=== PATIENT | female | born 1940 | race Caucasian/White ===

== ENCOUNTER 2019-12-21 10:46 | Inpatient (IN) | payer MEDICARE ==
[~2019-12-21] VITALS: Ht 162.6 cm; Wt 50.8 kg
--- NOTE | 2019-12-21 11:27 | PHYS DOC ---
Past Medical History Past Medical History: Dementia, High Cholesterol, Hypertension, Other (Parkinson) Adult General Chief Complaint Chief Complaint: MECHANICAL FALL HPI HPI Patient is a 79 year old female with history of hypertension, dyslipidemia, parkinsonism, dementia resident of assisting living home who presents via EMS with complaining of a fall and pain in left wrist and right hand. Patient had a second fall for the last 2 weeks and had a fall from a standing position at her assisting living home without loss of consciousness. Patient complaining of pain in left side of forehead, left wrist and right thumb and rated her pain. 4/10 and doesn't want to have pain medication. Patient is up-to-date with tetanus summarization. Review of Systems Review of Systems Constitutional: Denies fever or chills [] Eyes: Denies change in visual acuity, redness, or eye pain [] HENT: Denies nasal congestion or sore throat [] Respiratory: Denies cough or shortness of breath [] Cardiovascular: No additional information not addressed in HPI [] GI: Denies abdominal pain, nausea, vomiting, bloody stools or diarrhea [] : Denies dysuria or hematuria [] Musculoskeletal: Denies back pain, reports joint pain [] Integument: Denies rash or skin lesions [] Neurologic: Denies headache, focal weakness or sensory changes [] Endocrine: Denies polyuria or polydipsia [] All other systems were reviewed and found to be within normal limits, except as documented in this note. Current Medications Current Medications Current Medications Medications (Trade) Dose Ordered Sig/Tanika Start Time Stop Time Status Last Admin Dose Admin Fentanyl Citrate (Fentanyl 2ml Vial) 50 mcg PRN Q2HR PRN 12/21/19 13:00 12/21/19 21:00 DC Ondansetron HCl (Zofran) 4 mg 1X ONCE 12/21/19 12:15 12/21/19 12:16 DC 12/21/19 12:38 4 MG Allergies Allergies Allergies Coded Allergies Type Severity Reaction Last Updated Verified shellfish derived Allergy Intermediate Hives 12/21/19 Yes Physical Exam Physical Exam Constitutional: Well developed, well nourished, mild distress, non-toxic appearance. [] HENT: Normocephalic, left forehead and eyebrow contusion and abrasion without active bleeding Eyes: PERRLA, EOMI, conjunctiva normal, no discharge. [] Neck: Immobilized prior to arrival to ER Cardiovascular:Heart rate regular rhythm, no murmur [] Lungs & Thorax: Bilateral breath sounds clear to auscultation [] Abdomen: Bowel sounds normal, soft, no tenderness, no masses, no pulsatile masses. [] Skin: Warm, dry, no erythema, no rash. [] Back: No tenderness, no CVA tenderness. [] Extremities: Left wrist with deformity and tenderness, no neurovascular deficit, painful range of motion, right hand fifth contusion of fifth metacarpal area without deformity. Neurologic: Alert and oriented X 3, no focal deficits noted. [] Psychologic: Affect normal, mood normal. [] Current Patient Data Vital Signs Vital Signs Date Time Temp Pulse Resp B/P (MAP) Pulse Ox O2 Delivery O2 Flow Rate FiO2 12/21/19 12:45 72 18 99 12/21/19 10:50 98.1 142/77 (98) Room Air 98.1 Lab Values Laboratory Tests Test 12/21/19 12:30 White Blood Count 3.6 x10^3/uL (4.0-11.0) L Red Blood Count 4.08 x10^6/uL (3.50-5.40) Hemoglobin 12.4 g/dL (12.0-15.5) Hematocrit 37.7 % (36.0-47.0) Mean Corpuscular Volume 92 fL (79-100) Mean Corpuscular Hemoglobin 30 pg (25-35) Mean Corpuscular Hemoglobin Concent 33 g/dL (31-37) Red Cell Distribution Width 13.2 % (11.5-14.5) Platelet Count 196 x10^3/uL (140-400) Neutrophils (%) (Auto) 70 % (31-73) Lymphocytes (%) (Auto) 18 % (24-48) L Monocytes (%) (Auto) 10 % (0-9) H Eosinophils (%) (Auto) 2 % (0-3) Basophils (%) (Auto) 0 % (0-3) Neutrophils # (Auto) 2.5 x10^3/uL (1.8-7.7) Lymphocytes # (Auto) 0.7 x10^3/uL (1.0-4.8) L Monocytes # (Auto) 0.3 x10^3/uL (0.0-1.1) Eosinophils # (Auto) 0.1 x10^3/uL (0.0-0.7) Basophils # (Auto) 0.0 x10^3/uL (0.0-0.2) Prothrombin Time 13.0 SEC (11.7-14.0) Prothrombin Time INR 1.0 (0.8-1.1) Sodium Level 143 mmol/L (136-145) Potassium Level 4.4 mmol/L (3.5-5.1) Chloride Level 107 mmol/L (98-107) Carbon Dioxide Level 28 mmol/L (21-32) Anion Gap 8 (6-14) Blood Urea Nitrogen 16 mg/dL (7-20) Creatinine 0.7 mg/dL (0.6-1.0) Estimated GFR (Cockcroft-Gault) 80.3 BUN/Creatinine Ratio 23 (6-20) H Glucose Level 93 mg/dL (70-99) Calcium Level 9.0 mg/dL (8.5-10.1) Total Bilirubin 0.4 mg/dL (0.2-1.0) Aspartate Amino Transferase (AST) 18 U/L (15-37) Alanine Aminotransferase (ALT) < 6 U/L (14-59) L Alkaline Phosphatase 61 U/L (46-116) Total Protein 6.7 g/dL (6.4-8.2) Albumin 3.5 g/dL (3.4-5.0) Albumin/Globulin Ratio 1.1 (1.0-1.7) Laboratory Tests 12/21/19 12:30 Laboratory Tests 12/21/19 12:30 EKG EKG [] Radiology/Procedures Radiology/Procedures [facility] [address] [place], [place] [id number] IMAGING REPORT Signed PATIENT: BRIANA CHANEYACCOUNT: [id number] : 1940 LOCATION: ER AGE: 79 SEX: F EXAM STATUS: REG ER ORD. PHYSICIAN: LINNETTE MARIE MD REASON: fall, chest pain PROCEDURE: CHEST AP ONLY CHEST AP ONLY 12/21/2019 10:51 AM INDICATION: Fall, chest pain COMPARISON: None available TECHNIQUE: Portable frontal view of the chest is provided. FINDINGS: The cardiomediastinal silhouette is enlarged. Mild perihilar interstitial changes are identified with more confluent interstitial opacity in the left upper lobe. No pleural effusions or pneumothorax. Supine technique limits evaluation for pneumothorax. IMPRESSION: Cardiomegaly with mild perihilar interstitial changes and emphysema and interstitial edema or interstitial pneumonitis. Electronically signed by: Jaime Miramontes MD (12/21/2019 11:47 AM) [facility] DICTATED and SIGNED BY: JAIME MIRAMONTES MD DATE: 12/21/19 114 [facility] [address] [place], [place] [id number] IMAGING REPORT Signed PATIENT: BRIANA CHANEYACCOUNT: [id number] : 1940 LOCATION: ER AGE: 79 SEX: F EXAM STATUS: REG ER ORD. PHYSICIAN: LINNETTE MARIE MD REASON: fall, rt hand pain PROCEDURE: HAND RIGHT 3V WRIST 3V LEFT, HAND RIGHT 3V 12/21/2019 10:51 AM INDICATION: Fall with left wrist pain and swelling COMPARISON: None available. TECHNIQUE: 3 views the left wrist and 3 views the right hand are provided. FINDINGS/ IMPRESSION: 1. Left wrist: There is a comminuted fracture transversely oriented involving the left radial metadiaphysis with intra-articular extension. There is a displaced ulnar styloid process fracture. Mild widening of the scapholunate interval measuring up to 3 mm. Scaphoid is intact. Carpal bones are otherwise intact. 2. Right hand: There is an ossific fragment along the radial margin of the distal interphalangeal joint of the third digit which appears chronic. Correlate with site of point tenderness. Tiny ossific fragment is identified along the ulnar margin of the fifth MCP which appears chronic. Correlate with the site of point tenderness. Joint spaces are maintained. Bone mineralization is within normal limits. No significant soft tissue swelling. Electronically signed by: Jaime Miramontes MD (12/21/2019 11:49 AM) [facility] DICTATED and SIGNED BY: JAIME MIRAMONTES MD DATE: 12/21/19 1149 [facility] [address] [place] [address] IMAGING REPORT Signed PATIENT: BRIANA CHANEYACCOUNT: [id number] : 1940 LOCATION: ER AGE: 79 SEX: F EXAM STATUS: REG ER ORD. PHYSICIAN: LINNETTE MARIE MD REASON: fall PROCEDURE: CT HEAD AND CERVICAL SPINE WO Examination: CT HEAD AND CERVICAL SPINE WO History: Fall, pain Comparison/Correlation: None Findings: Axial images of the head and cervical spine were obtained without contrast. Sagittal and coronal reformatted images of the cervical spine were obtained. Atrophy is present. No intracranial hemorrhage, midline shift or mass effect. Minimal opacification of external auditory canals noted. Atlantoaxial joint degenerative changes are mild. Facet joint degenerative hypertrophy bilaterally involving upper cervical spine. Moderate C5-6 space narrowing is present. Bony encroachment upon the right neural foramen is present on the right at C5-6 with significant neural foraminal narrowing. Mild C6-7 disc space narrowing. Bony density superior to the dens is noted probably representing accessory ossification center. Alignment is unremarkable. Vertebral body heights are normal. Soft tissues of the neck are unremarkable. Impression: No intracranial hemorrhage. No fracture or bony destruction. Degenerative changes of the cervical spine. PQRS Compliance Statement: One or more of the following individualized dose reduction techniques were utilized for this examination: 1. Automated exposure control 2. Adjustment of the mA and/or kV according to patient size 3. Use of iterative reconstruction technique Electronically signed by: Teja Petty MD (12/21/2019 11:55 AM) [facility] DICTATED and SIGNED BY: TEJA PETTY MD DATE: 12/21/19 1155 [facility] [address] [place] [address] IMAGING REPORT Signed PATIENT: BRIANA CHANEYACCOUNT: [id number] : 1940 LOCATION: ER AGE: 79 SEX: F EXAM STATUS: REG ER ORD. PHYSICIAN: LINNETTE MARIE MD REASON: fall, pelvic pain PROCEDURE: PELVIS PELVIS 12/21/2019 10:51 AM INDICATION: Fall, pelvic pain COMPARISON: None available. TECHNIQUE: Single AP view the pelvis is provided. FINDINGS/ IMPRESSION: Posterolateral fusion is identified at the L4-L5. No acute fracture or dislocation of the pelvis. Femoral heads are well aligned with the acetabulum. Superior and inferior pubic rami are intact. Sacroiliac joints are well aligned. Sacral stella appear intact. Electronically signed by: Jaime Miramontes MD (12/21/2019 11:50 AM) [facility] DICTATED and SIGNED BY: JAIME MIRAMONTES MD DATE: 12/21/19 1150 Course & Med Decision Making Course & Med Decision Making Pertinent Labs and Imaging studies reviewed. (See chart for details) Evaluation of patient in ER showed 79-year-old male patient with history of Parkinson and resident of assisted living home who move with her walker brought in by EMS because of a fall and injury to face and hands. Patient has distal radial and ulnar fracture of her left hand and splint was placed. Patient had facial contusion with unremarkable CT head and neck. Patient is not able to walk with her walker because of left hand splint and falls. Plan to admit patient for possible rehabilitation or assisted placement. Patient requiring admission for further evaluation and treatment. Discussed with Dr. Hernandez who is in agreement with admission. Discussed findings and plan with patient and family, who acknowledge understanding and agreement. Dragon Disclaimer Dragon Disclaimer This electronic medical record was generated, in whole or in part, using a voice recognition dictation system. Departure Departure Impression: Primary Impression: Frequent falls Additional Impressions: Closed fracture of distal end of left radius with ulna Facial contusion Contusion of right hand Disposition: ADMITTED INPATIENT (at 1255) Admitting Physician: ELENA (Dr. Hernandez accepted admission at 1253) Condition: IMPROVED Referrals: GEOVANI MCDANIEL Jr, MD (PCP) Problem Qualifiers Additional Impressions: Closed fracture of distal end of left radius with ulna Encounter type: initial encounter Qualified Codes: S52.502A - Unspecified fracture of the lower end of left radius, initial encounter for closed fracture; S52.602A - Unspecified fracture of lower end of left ulna, initial encounter for closed fracture Facial contusion Encounter type: subsequent encounter Qualified Codes: S00.83XD - Contusion of other part of head, subsequent encounter Contusion of right hand Encounter type: subsequent encounter Qualified Codes: S60.221D - Contusion of right hand, subsequent encounter LINNETTE MARIE MD Dec 21, 2019 11:27
[2019-12-21] MEDS ORDERED: fentaNYL PF VIAL 100 MCG/2 ML VIAL IVP ONE ×2 (11:45→12:00)
--- NOTE | 2019-12-21 11:50 | RAD ---
CHEST AP ONLY 12/21/2019 10:51 AM INDICATION: Fall, chest pain COMPARISON: None available TECHNIQUE: Portable frontal view of the chest is provided. FINDINGS: The cardiomediastinal silhouette is enlarged. Mild perihilar interstitial changes are identified with more confluent interstitial opacity in the left upper lobe. No pleural effusions or pneumothorax. Supine technique limits evaluation for pneumothorax. IMPRESSION: Cardiomegaly with mild perihilar interstitial changes and emphysema and interstitial edema or interstitial pneumonitis. Electronically signed by: Roxie Meier MD (12/21/2019 11:47 AM) [facility]
--- NOTE | 2019-12-21 11:52 | RAD ---
WRIST 3V LEFT, HAND RIGHT 3V 12/21/2019 10:51 AM INDICATION: Fall with left wrist pain and swelling COMPARISON: None available. TECHNIQUE: 3 views the left wrist and 3 views the right hand are provided. FINDINGS/ IMPRESSION: 1. Left wrist: There is a comminuted fracture transversely oriented involving the left radial metadiaphysis with intra-articular extension. There is a displaced ulnar styloid process fracture. Mild widening of the scapholunate interval measuring up to 3 mm. Scaphoid is intact. Carpal bones are otherwise intact. 2. Right hand: There is an ossific fragment along the radial margin of the distal interphalangeal joint of the third digit which appears chronic. Correlate with site of point tenderness. Tiny ossific fragment is identified along the ulnar margin of the fifth MCP which appears chronic. Correlate with the site of point tenderness. Joint spaces are maintained. Bone mineralization is within normal limits. No significant soft tissue swelling. Electronically signed by: Roxie Meier MD (12/21/2019 11:49 AM) [facility]
--- NOTE | 2019-12-21 11:53 | RAD ---
PELVIS 12/21/2019 10:51 AM INDICATION: Fall, pelvic pain COMPARISON: None available. TECHNIQUE: Single AP view the pelvis is provided. FINDINGS/ IMPRESSION: Posterolateral fusion is identified at the L4-L5. No acute fracture or dislocation of the pelvis. Femoral heads are well aligned with the acetabulum. Superior and inferior pubic rami are intact. Sacroiliac joints are well aligned. Sacral stella appear intact. Electronically signed by: Roxie Meier MD (12/21/2019 11:50 AM) [facility]
--- NOTE | 2019-12-21 11:58 | RAD ---
Examination: CT HEAD AND CERVICAL SPINE WO History: Fall, pain Comparison/Correlation: None Findings: Axial images of the head and cervical spine were obtained without contrast. Sagittal and coronal reformatted images of the cervical spine were obtained. Atrophy is present. No intracranial hemorrhage, midline shift or mass effect. Minimal opacification of external auditory canals noted. Atlantoaxial joint degenerative changes are mild. Facet joint degenerative hypertrophy bilaterally involving upper cervical spine. Moderate C5-6 space narrowing is present. Bony encroachment upon the right neural foramen is present on the right at C5-6 with significant neural foraminal narrowing. Mild C6-7 disc space narrowing. Bony density superior to the dens is noted probably representing accessory ossification center. Alignment is unremarkable. Vertebral body heights are normal. Soft tissues of the neck are unremarkable. Impression: No intracranial hemorrhage. No fracture or bony destruction. Degenerative changes of the cervical spine. PQRS Compliance Statement: One or more of the following individualized dose reduction techniques were utilized for this examination: 1. Automated exposure control 2. Adjustment of the mA and/or kV according to patient size 3. Use of iterative reconstruction technique Electronically signed by: Teja Sharp MD (12/21/2019 11:55 AM) [facility]
[2019-12-21] MEDS ORDERED: ONDANSETRON PF 4 MG/2 ML VIAL. IVP ONE (12:15)
[2019-12-21 12:41] LABS: BASO % 0 % (0-3); EOS # 0.1 x10^3/uL (0.0-0.7); EOS % 2 % (0-3); HEMATOCRIT 37.7 % (36.0-47.0); HEMOGLOBIN 12.4 g/dL (12.0-15.5); LYMPH # 0.7 x10^3/uL (1.0-4.8); LYMPH % 18 % (24-48); MEAN CORPUSCULAR HEMOGLOBIN 30 pg (25-35); MEAN CORPUSCULAR HGB CONC 33 g/dL (31-37); MEAN CORPUSCULAR VOLUME 92 fL (79-100); MONO # 0.3 x10^3/uL (0.0-1.1); MONO % 10 % (0-9); NEUT # 2.5 x10^3/uL (1.8-7.7); NEUT % 70 % (31-73); PLATELET COUNT 196 x10^3/uL (140-400); RED BLOOD COUNT 4.08 x10^6/uL (3.50-5.40); RED CELL DISTRIBUTION WIDTH 13.2 % (11.5-14.5); WHITE BLOOD COUNT 3.6 x10^3/uL (4.0-11.0)
--- NOTE | 2019-12-21 12:57 | PDOC1 ---
History and Physical Date of Admission Date of Admission DATE: 12/21/19 TIME: 12:53 Identification/Chief Complaint Chief Complaint falls, left wrist pain SEEN IN ER , presented via EMS with complaining of a fall and pain in left wrist and right hand. Patient had 2 FALLS , last 2 weeks and had a fall from a standing position at her assisting living home without loss of consciousness. complaining of pain in left side of forehead, left wrist and right thumb and rated her pain GAIT IS UNSTABLE, High fall risk, admitted Past Medical History Past Medical History Past Medical History Past Medical History: Dementia, High Cholesterol, Hypertension, Other (Parkinson) Cardiovascular: AFIB CENTRAL NERVOUS SYSTEM: Dementia Musculoskeletal: Osteoarthritis Family History Family History: Hypertension Social History Smoke: No ALCOHOL: none Drugs: None Current Medications Current Medications Current Medications Fentanyl Citrate (Fentanyl 2ml Vial) 50 mcg 1X ONCE IVP ; Start 12/21/19 at 11:45; Stop 12/21/19 at 11:58; Status DC Fentanyl Citrate (Fentanyl 2ml Vial) 50 mcg 1X ONCE IVP Last administered on 12/21/19at 12:38; Start 12/21/19 at 12:00; Stop 12/21/19 at 12:01; Status DC Ondansetron HCl (Zofran) 4 mg 1X ONCE IVP Last administered on 12/21/19at 12:38; Start 12/21/19 at 12:15; Stop 12/21/19 at 12:16; Status DC Allergies Allergies: Coded Allergies: shellfish derived (Verified Allergy, Intermediate, Hives, 12/21/19) ROS Review of System Review of Systems Review of Systems Constitutional: Denies fever or chills [] Eyes: Denies change in visual acuity, redness, or eye pain [] HENT: Denies nasal congestion or sore throat [] Respiratory: Denies cough or shortness of breath [] Cardiovascular: No additional information not addressed in HPI [] GI: Denies abdominal pain, nausea, vomiting, bloody stools or diarrhea [] : Denies dysuria or hematuria [] Musculoskeletal: Denies back pain, reports joint pain [] Integument: Denies rash or skin lesions [] Neurologic: Denies headache, focal weakness or sensory changes [] Endocrine: Denies polyuria or polydipsia [] 14 pt systems were reviewed and found to be within normal limits, except as documented in this note and limited by dementia. General: YES: Fatigue PSYCHOLOGICAL ROS: YES: Disorientation Hematological and Lymphatic: No: Bleeding Problems, Blood Clots, Blood Transfusions, Brusing, Night Sweats, Pallor, Swollen Lymph Nodes, Other Respiratory: No: Cough, Hemoptysis, Orthopnea, Pleuritic Pain, Shortness of breath, SOB with excertion, Sputum Changes, Stridor, Tachypnea, Wheezing, Other Cardiovascular: No Chest Pain, No Palpitations, No Orthopnea, No Paroxysmal Noc. Dyspnea, No Edema, No Lt Headedness, No Other Musculoskeletal: Yes Gait Disturbance, Yes Joint Stiffness Neurological: Yes Confusion, Yes Gait Disturbance Physical Exam Physical Exam Physical Exam Physical Exam Constitutional: Well developed, well nourished,no distress, non-toxic appearance. [] HENT: Normocephalic, left forehead and eyebrow contusion and abrasion without active bleeding Eyes: PERRLA, EOMI, conjunctiva normal, no discharge. [] Neck: Immobilized prior to arrival to ER Cardiovascular:Heart rate regular rhythm, no murmur [] Lungs & Thorax: Bilateral breath sounds clear to auscultation [] Abdomen: Bowel sounds normal, soft, no tenderness, no masses, no pulsatile masses. [] Skin: Warm, dry, no erythema, no rash. [] Back: No tenderness, no CVA tenderness. [] Extremities: Left wrist with deformity and tenderness, no neurovascular deficit, painful range of motion, right hand fifth digit contusion of fifth metacarpal area without deformity. Neurologic: Alert and oriented X 3, no focal deficits noted. [] Psychologic: Affect normal, mood normal. [] General: Alert, Cooperative, No acute distress HEENT: Mucous membr. moist/pink Lungs: Clear to auscultation, Normal air movement Heart: no thrills, no gallops, irregularly irregular Breasts: Not examined Abdomen: Normal bowel sounds, Soft Rectal Exam: not examined PELVIC: Examination not indicated Extremities: No cyanosis Neuro: Cranial nerves 3-12 NL Vitals Vitals Vital Signs Date Time Temp Pulse Resp B/P (MAP) Pulse Ox O2 Delivery O2 Flow Rate FiO2 12/21/19 10:50 98.1 77 18 142/77 (98) 98 Room Air 98.1 Labs Labs Laboratory Tests Test 12/21/19 12:30 White Blood Count 3.6 x10^3/uL (4.0-11.0) Red Blood Count 4.08 x10^6/uL (3.50-5.40) Hemoglobin 12.4 g/dL (12.0-15.5) Hematocrit 37.7 % (36.0-47.0) Mean Corpuscular Volume 92 fL (79-100) Mean Corpuscular Hemoglobin 30 pg (25-35) Mean Corpuscular Hemoglobin Concent 33 g/dL (31-37) Red Cell Distribution Width 13.2 % (11.5-14.5) Platelet Count 196 x10^3/uL (140-400) Neutrophils (%) (Auto) 70 % (31-73) Lymphocytes (%) (Auto) 18 % (24-48) Monocytes (%) (Auto) 10 % (0-9) Eosinophils (%) (Auto) 2 % (0-3) Basophils (%) (Auto) 0 % (0-3) Neutrophils # (Auto) 2.5 x10^3/uL (1.8-7.7) Lymphocytes # (Auto) 0.7 x10^3/uL (1.0-4.8) Monocytes # (Auto) 0.3 x10^3/uL (0.0-1.1) Eosinophils # (Auto) 0.1 x10^3/uL (0.0-0.7) Basophils # (Auto) 0.0 x10^3/uL (0.0-0.2) Laboratory Tests Test 12/21/19 12:30 White Blood Count 3.6 x10^3/uL (4.0-11.0) Red Blood Count 4.08 x10^6/uL (3.50-5.40) Hemoglobin 12.4 g/dL (12.0-15.5) Hematocrit 37.7 % (36.0-47.0) Mean Corpuscular Volume 92 fL (79-100) Mean Corpuscular Hemoglobin 30 pg (25-35) Mean Corpuscular Hemoglobin Concent 33 g/dL (31-37) Red Cell Distribution Width 13.2 % (11.5-14.5) Platelet Count 196 x10^3/uL (140-400) Neutrophils (%) (Auto) 70 % (31-73) Lymphocytes (%) (Auto) 18 % (24-48) Monocytes (%) (Auto) 10 % (0-9) Eosinophils (%) (Auto) 2 % (0-3) Basophils (%) (Auto) 0 % (0-3) Neutrophils # (Auto) 2.5 x10^3/uL (1.8-7.7) Lymphocytes # (Auto) 0.7 x10^3/uL (1.0-4.8) Monocytes # (Auto) 0.3 x10^3/uL (0.0-1.1) Eosinophils # (Auto) 0.1 x10^3/uL (0.0-0.7) Basophils # (Auto) 0.0 x10^3/uL (0.0-0.2) Images Images Signed PATIENT: BRIANA CHANEYACCOUNT: [id number] : 1940 LOCATION: ER AGE: 79 SEX: F EXAM STATUS: REG ER ORD. PHYSICIAN: LINNETTE MARIE MD REASON: fall, left wrist pain and swelling PROCEDURE: WRIST 3V LEFT WRIST 3V LEFT, HAND RIGHT 3V 12/21/2019 10:51 AM INDICATION: Fall with left wrist pain and swelling COMPARISON: None available. TECHNIQUE: 3 views the left wrist and 3 views the right hand are provided. FINDINGS/ IMPRESSION: 1. Left wrist: There is a comminuted fracture transversely oriented involving the left radial metadiaphysis with intra-articular extension. There is a displaced ulnar styloid process fracture. Mild widening of the scapholunate interval measuring up to 3 mm. Scaphoid is intact. Carpal bones are otherwise intact. 2. Right hand: There is an ossific fragment along the radial margin of the distal interphalangeal joint of the third digit which appears chronic. Correlate with site of point tenderness. Tiny ossific fragment is identified along the ulnar margin of the fifth MCP which appears chronic. Correlate with the site of point tenderness. Joint spaces are maintained. Bone mineralization is within normal limits. No significant soft tissue swelling. Electronically signed by: Jaime Miramontes MD (12/21/2019 11:49 AM) [facility] DICTATED and SIGNED BY: JAIME MIRAMONTES MD DATE: 12/21/19 1149 VTE Prophylaxis Ordered VTE Prophylaxis Devices: No VTE Pharmacological Prophylaxi: Yes Assessment/Plan Assessment/Plan IMPRESSION: 1. Left wrist: acute comminuted fracture transversely oriented involving the left radial metadiaphysis with intra-articular extension. There is a displaced ulnar styloid process fracture. Mild widening of the scapholunate interval measuring up to 3 mm. Scaphoid is intact. Carpal bones are otherwise intact. 2. Right hand: ossific fragment along the radial margin of the distal interphalangeal joint of the third digit which appears chronic. Tiny ossific fragment is identified along the ulnar margin of the fifth MCP which appears chronic. Joint spaces are maintained. 3. Bone mineralization is within normal limits. No significant soft tissue swelling. 4. mechanical falls x 2 in 2 weeks 5. dementia 6, gait instability 7. hx a-fib 8. high fall risk 9. Parkinson's disease plan admit npo consult ortho home meds tele to exclude arrythmia ua dvt prophylaxis bedrest HERBER ORTIZ MD Dec 21, 2019 12:57
[2019-12-21] MEDS ORDERED: fentaNYL PF VIAL 100 MCG/2 ML VIAL IV PRN (13:00)
[2019-12-21 13:07] LABS: ANION GAP 8 (6-14); BLOOD UREA NITROGEN 16 mg/dL (7-20); BUN/CREATININE RATIO 23 (6-20); CARBON DIOXIDE 28 mmol/L (21-32); CHLORIDE 107 mmol/L (98-107); CREATININE 0.7 mg/dL (0.6-1.0); GFR 80.3; GLUCOSE 93 mg/dL (70-99); POTASSIUM 4.4 mmol/L (3.5-5.1); SODIUM 143 mmol/L (136-145)
[2019-12-21 13:13] LABS: ALBUMIN 3.5 g/dL (3.4-5.0); ALBUMIN/GLOBULIN RATIO 1.1 (1.0-1.7); ALK PHOS 61 U/L (46-116); ALT (SGPT) < 6 U/L (14-59); AST (SGOT) 18 U/L (15-37); TOTAL BILIRUBIN 0.4 mg/dL (0.2-1.0); TOTAL PROTEIN 6.7 g/dL (6.4-8.2)
[2019-12-21] MEDS ORDERED: cloNIDine HCL 0.1 MG TABLET PO PRN (13:30)
[2019-12-21] MEDS ORDERED: HYDROmorphone 2 MG/ML VIAL IV PRN (13:30)
[2019-12-21] MEDS ORDERED: ONDANSETRON PF 4 MG/2 ML VIAL. IV PRN (13:30)
[2019-12-21] MEDS ORDERED: SODIUM PHOSPHATES 19/7GM 133 ML ENEMA. PR PRN (13:30)
[2019-12-21] MEDS ORDERED: ALBUTEROL SULFATE 2.5 MG/3 ML NEBU. NEB PRN (13:30)
[2019-12-21] MEDS ORDERED: DOCUSATE SODIUM 100 MG CAPSULE. PO PRN (13:30)
[2019-12-21] MEDS ORDERED: guaiFENesin ORAL 200 MG/10 ML LIQUID. PO PRN (13:30)
[2019-12-21] MEDS ORDERED: 0.9 % SODIUM CHLORIDE 10 ML DISP.SYRIN. IV PRN (13:30)
[2019-12-21] MEDS: IV NORMAL SALINE 1000ML BAG 1,000 ML IV SCH (14:37)
[2019-12-21 15:03] LABS: BILIRUBIN,URINE NEGATIVE (NEG); CLARITY,URINE CLEAR; COLOR,URINE YELLOW; NITRITE,URINE NEGATIVE (NEG); PH,URINE 7.5; PROTEIN,URINE NEGATIVE (NEG-TRACE); UROBILINOGEN,URINE 0.2 mg/dL (0.2 mg/dL)
[2019-12-21 15:18] LABS: BACTERIA,URINE 0 /HPF (0-FEW); RBC,URINE OCC /HPF (0-2); SQUAMOUS EPITHELIAL CELL,UR OCC /LPF; WBC,URINE OCC /HPF (0-4)
--- NOTE | 2019-12-21 15:47 | PDOC2 ---
CONSULT Date of Consult Date of Consult DATE: 12/21/19 TIME: 15:46 History of Present Illness Reason for Visit: 79 year old woman who presented via EMS with complaining of a fall and pain in left wrist and right hand. Patient had 2 FALLS , last 2 weeks and had a fall from a standing position at her assisting living home without loss of consciousness. Complaining of pain in left side of forehead, left wrist and right thumb and r ated her pain GAIT IS UNSTABLE, High fall risk, admitted I spoke to the patient and her son. They are very pleased with the care she gets at [facility] in [place]. She lives in her own home until August but with Parkinson's disease function is getting worse and she transferred to assisted living at [facility]. She is quite happy with the care there. Her speech is getting more difficult, her legs are getting weaker and her hands are getting weaker. She and I and her son talked about her wrist fracture, and expectations with either operative or nonoperative treatment. She is right-handed. She does use her left hand on a walker, but doesn't use the left hand for any cooking or cleaning, and is able to use her extremities less and less all the time. She said she also doesn't care about any cosmetic deformity. Past Medical History Past Medical History Parkinson's Disease, mental faculties are still fairly good, physical strength and speech are markedly decreased. Cardiovascular: AFIB CENTRAL NERVOUS SYSTEM: Dementia Musculoskeletal: Osteoarthritis Family History Family History: Hypertension Social History No ALCOHOL: none Drugs: None Current Problem List Problem List Problems Medical Problems: (1) Closed fracture of distal end of left radius with ulna Status: Acute (2) Contusion of right hand Status: Acute (3) Facial contusion Status: Acute (4) Frequent falls Status: Acute Current Medications Current Medications Current Medications Fentanyl Citrate (Fentanyl 2ml Vial) 50 mcg 1X ONCE IVP ; Start 12/21/19 at 11:45; Stop 12/21/19 at 11:58; Status DC Fentanyl Citrate (Fentanyl 2ml Vial) 50 mcg 1X ONCE IVP Last administered on 12/21/19at 12:38; Start 12/21/19 at 12:00; Stop 12/21/19 at 12:01; Status DC Ondansetron HCl (Zofran) 4 mg 1X ONCE IVP Last administered on 12/21/19at 12:3 8; Start 12/21/19 at 12:15; Stop 12/21/19 at 12:16; Status DC Fentanyl Citrate (Fentanyl 2ml Vial) 50 mcg PRN Q2HR PRN IV PAIN; Start 12/21/19 at 13:00; Stop 12/21/19 at 21:00 Sodium Chloride (Normal Saline Flush) 3 ml QSHIFT PRN IV AFTER MEDS AND BLOOD DRAWS; Start 12/21/19 at 13:30 Sodium Chloride 1,000 ml @ 60 mls/hr [id number] IV Last administered on 12/21/19at 14:37; Start 12/21/19 at 14:00 Ondansetron HCl (Zofran) 4 mg PRN Q4HRS PRN IV NAUSEA/VOMITING; Start 12/21/19 at 13:30 Acetaminophen (Tylenol) 650 mg PRN Q4HRS PRN PO TEMP OVER 100.4F OR MILD PAIN; Start 12/21/19 at 13:30 Clonidine HCl (Catapres) 0.1 mg PRN Q6HRS PRN PO SBP>160 OR DBP>90; Start 12/21/19 at 13:30 Sodium Monofluorophosphate (Fleet Adult) 133 ml PRN DAILY PRN AK CONSTIPATION; Start 12/21/19 at 13:30 Docusate Sodium (Colace) 100 mg PRN BID PRN PO CONSTIPATION; Start 12/21/19 at 13:30 Albuterol Sulfate (Ventolin Neb Soln) 2.5 mg PRN Q4HRS PRN NEB SHORTNESS OF BREATH; Start 12/21/19 at 13:30 Guaifenesin (Robitussin) 200 mg PRN Q4HRS PRN PO COUGH; Start 12/21/19 at 13:30 Lorazepam (Ativan Inj) 2 mg PRN Q4HRS PRN IV ANXIETY / AGITATION; Start 12/21/19 at 13:30 Hydromorphone HCl (Dilaudid) 0.5 mg PRN Q3HRS PRN IV SEVERE PAIN 7-10 Last administered on 12/21/19at 14:37; Start 12/21/19 at 13:30 Enoxaparin Sodium (Lovenox 40mg Syringe) 40 mg Q24H SQ ; Start 12/21/19 at 21:00 Allergies Allergies: Coded Allergies: shellfish derived (Verified Allergy, Intermediate, Hives, 12/21/19) ROS Review of System Constitutional: Denies fever or chills [] Eyes: Denies change in visual acuity, redness, or eye pain [] HENT: Denies nasal congestion or sore throat [] Respiratory: Denies cough or shortness of breath [] Cardiovascular: No additional information not addressed in HPI [] GI: Denies abdominal pain, nausea, vomiting, bloody stools or diarrhea [] : Denies dysuria or hematuria [] Musculoskeletal: Denies back pain, reports joint pain [] Integument: Denies rash or skin lesions [] Neurologic: Denies headache, focal weakness or sensory changes [] Endocrine: Denies polyuria or polydipsia [] Physical Exam General: Alert, Cooperative HEENT: Other (mild abrasion) Heart: Regular rate Abdomen: Soft Extremities: Other (The wrist is in a splint which was not removed for the exa m. There is swelling at the wrist area. The alignment is slightly deformed with dinner fork deformity. There is obvious tenderness at the wrist. Motion is decreased but there is no evidence of specific neurovascular injury. Capillary refill is normal. Pulse is not assessable due to the tenderness of the wrist. Light touch sensation is intact. Motor function is present for the radial ulnar and median nerves at the fingers. There is no tenderness at the elbow. The skin is reported as intact over the fracture.) Neuro: Other (speech is dysarthric consistent with Parkinson's disease) MUSCULOSKELETAL: Abnormal exam of left (wrist as above, dinner fork deformity and tenderness but finger function appears normal.) Vitals VITALS Vital Signs Date Time Temp Pulse Resp B/P (MAP) Pulse Ox O2 Delivery O2 Flow Rate FiO2 12/21/19 10:50 98.1 77 18 142/77 (98) 98 Room Air 98.1 Labs Labs Laboratory Tests Test 12/21/19 12:30 12/21/19 14:50 White Blood Count 3.6 x10^3/uL (4.0-11.0) Red Blood Count 4.08 x10^6/uL (3.50-5.40) Hemoglobin 12.4 g/dL (12.0-15.5) Hematocrit 37.7 % (36.0-47.0) Mean Corpuscular Volume 92 fL (79-100) Mean Corpuscular Hemoglobin 30 pg (25-35) Mean Corpuscular Hemoglobin Concent 33 g/dL (31-37) Red Cell Distribution Width 13.2 % (11.5-14.5) Platelet Count 196 x10^3/uL (140-400) Neutrophils (%) (Auto) 70 % (31-73) Lymphocytes (%) (Auto) 18 % (24-48) Monocytes (%) (Auto) 10 % (0-9) Eosinophils (%) (Auto) 2 % (0-3) Basophils (%) (Auto) 0 % (0-3) Neutrophils # (Auto) 2.5 x10^3/uL (1.8-7.7) Lymphocytes # (Auto) 0.7 x10^3/uL (1.0-4.8) Monocytes # (Auto) 0.3 x10^3/uL (0.0-1.1) Eosinophils # (Auto) 0.1 x10^3/uL (0.0-0.7) Basophils # (Auto) 0.0 x10^3/uL (0.0-0.2) Prothrombin Time 13.0 SEC (11.7-14.0) Prothromb Time International Ratio 1.0 (0.8-1.1) Sodium Level 143 mmol/L (136-145) Potassium Level 4.4 mmol/L (3.5-5.1) Chloride Level 107 mmol/L (98-107) Carbon Dioxide Level 28 mmol/L (21-32) Anion Gap 8 (6-14) Blood Urea Nitrogen 16 mg/dL (7-20) Creatinine 0.7 mg/dL (0.6-1.0) Estimated GFR (Cockcroft-Gault) 80.3 BUN/Creatinine Ratio 23 (6-20) Glucose Level 93 mg/dL (70-99) Calcium Level 9.0 mg/dL (8.5-10.1) Total Bilirubin 0.4 mg/dL (0.2-1.0) Aspartate Amino Transf (AST/SGOT) 18 U/L (15-37) Alanine Aminotransferase (ALT/SGPT) < 6 U/L (14-59) Alkaline Phosphatase 61 U/L (46-116) Total Protein 6.7 g/dL (6.4-8.2) Albumin 3.5 g/dL (3.4-5.0) Albumin/Globulin Ratio 1.1 (1.0-1.7) Urine Collection Type Unknown Urine Color Yellow Urine Clarity Clear Urine pH 7.5 Urine Specific Bylas 1.010 Urine Protein Negative mg/dL (NEG-TRACE) Urine Glucose (UA) Negative mg/dL (NEG) Urine Ketones (Stick) Negative mg/dL (NEG) Urine Blood Negative (NEG) Urine Nitrite Negative (NEG) Urine Bilirubin Negative (NEG) Urine Urobilinogen Dipstick 0.2 mg/dL (0.2 mg/dL) Urine Leukocyte Esterase Negative (NEG) Urine RBC Occ /HPF (0-2) Urine WBC Occ /HPF (0-4) Urine Squamous Epithelial Cells Occ /LPF Urine Bacteria 0 /HPF (0-FEW) Laboratory Tests Test 12/21/19 12:30 12/21/19 14:50 White Blood Count 3.6 x10^3/uL (4.0-11.0) Red Blood Count 4.08 x10^6/uL (3.50-5.40) Hemoglobin 12.4 g/dL (12.0-15.5) Hematocrit 37.7 % (36.0-47.0) Mean Corpuscular Volume 92 fL (79-100) Mean Corpuscular Hemoglobin 30 pg (25-35) Mean Corpuscular Hemoglobin Concent 33 g/dL (31-37) Red Cell Distribution Width 13.2 % (11.5-14.5) Platelet Count 196 x10^3/uL (140-400) Neutrophils (%) (Auto) 70 % (31-73) Lymphocytes (%) (Auto) 18 % (24-48) Monocytes (%) (Auto) 10 % (0-9) Eosinophils (%) (Auto) 2 % (0-3) Basophils (%) (Auto) 0 % (0-3) Neutrophils # (Auto) 2.5 x10^3/uL (1.8-7.7) Lymphocytes # (Auto) 0.7 x10^3/uL (1.0-4.8) Monocytes # (Auto) 0.3 x10^3/uL (0.0-1.1) Eosinophils # (Auto) 0.1 x10^3/uL (0.0-0.7) Basophils # (Auto) 0.0 x10^3/uL (0.0-0.2) Prothrombin Time 13.0 SEC (11.7-14.0) Prothromb Time International Ratio 1.0 (0.8-1.1) Sodium Level 143 mmol/L (136-145) Potassium Level 4.4 mmol/L (3.5-5.1) Chloride Level 107 mmol/L (98-107) Carbon Dioxide Level 28 mmol/L (21-32) Anion Gap 8 (6-14) Blood Urea Nitrogen 16 mg/dL (7-20) Creatinine 0.7 mg/dL (0.6-1.0) Estimated GFR (Cockcroft-Gault) 80.3 BUN/Creatinine Ratio 23 (6-20) Glucose Level 93 mg/dL (70-99) Calcium Level 9.0 mg/dL (8.5-10.1) Total Bilirubin 0.4 mg/dL (0.2-1.0) Aspartate Amino Transf (AST/SGOT) 18 U/L (15-37) Alanine Aminotransferase (ALT/SGPT) < 6 U/L (14-59) Alkaline Phosphatase 61 U/L (46-116) Total Protein 6.7 g/dL (6.4-8.2) Albumin 3.5 g/dL (3.4-5.0) Albumin/Globulin Ratio 1.1 (1.0-1.7) Urine Collection Type Unknown Urine Color Yellow Urine Clarity Clear Urine pH 7.5 Urine Specific Bylas 1.010 Urine Protein Negative mg/dL (NEG-TRACE) Urine Glucose (UA) Negative mg/dL (NEG) Urine Ketones (Stick) Negative mg/dL (NEG) Urine Blood Negative (NEG) Urine Nitrite Negative (NEG) Urine Bilirubin Negative (NEG) Urine Urobilinogen Dipstick 0.2 mg/dL (0.2 mg/dL) Urine Leukocyte Esterase Negative (NEG) Urine RBC Occ /HPF (0-2) Urine WBC Occ /HPF (0-4) Urine Squamous Epithelial Cells Occ /LPF Urine Bacteria 0 /HPF (0-FEW) Images Images Report reviewed, images independently reviewed. [facility] [id number] [place] [address] IMAGING REPORT Signed PATIENT: BRIANA CHANEY ACCOUNT: [id number] : 1940 LOCATION: ER AGE: 79 SEX: F EXAM STATUS: REG ER ORD. PHYSICIAN: LINNETTE MARIE MD REASON: fall, left wrist pain and swelling PROCEDURE: WRIST 3V LEFT WRIST 3V LEFT, HAND RIGHT 3V 12/21/2019 10:51 AM INDICATION: Fall with left wrist pain and swelling COMPARISON: None available. TECHNIQUE: 3 views the left wrist and 3 views the right hand are provided. FINDINGS/ IMPRESSION: 1. Left wrist: There is a comminuted fracture transversely oriented involving the left radial metadiaphysis with intra-articular extension. There is a displaced ulnar styloid process fracture. Mild widening of the scapholunate interval measuring up to 3 mm. Scaphoid is intact. Carpal bones are otherwise intact. 2. Right hand: There is an ossific fragment along the radial margin of the distal interphalangeal joint of the third digit which appears chronic. Correlate with site of point tenderness. Tiny ossific fragment is identified along the ulnar margin of the fifth MCP which appears chronic. Correlate with the site of point tenderness. Joint spaces are maintained. Bone mineralization is within normal limits. No significant soft tissue swelling. Electronically signed by: Jaime Miramontse MD (12/21/2019 11:49 AM) [id number] DICTATED and SIGNED BY: JAIME MIRAMONTES MD DATE: 12/21/19 1149 Assessment/Plan Assessment/Plan 2019 ICD-10-CM Diagnosis Code S52.532A Colles' fracture of left radius, initial encounter for closed fracture I spoke to them about options for treatment. With nonoperative treatment the fracture would likely heal, with a low risk of infection or other complications, however there will be a permanent visual deformity and slight weakness and perhaps slight loss of function given her low demand at this point, nonoperative treatment seems to be a reasonable approach. With surgery, I would be able to correct the visual deformity, and this would heal in a better position most likely, which would give better long-term strength and less likely to get osteoarthritis. There would be risks of surgery such as infection, neurovascular injury, hardware failure, or other potential surgical or anesthetic competitions which might require additional surgeries. She and I and her son discussed the risks benefits and alternatives and they would like nonoperative treatment. The patient stated she is not concerned at all about any cosmetic deformity of the wrist. I suspect this will heal well with the current splint to be used for discharge, and an office visit in about 2 weeks to change to a removable brace or a cast. I would continue the cast or brace for about 4 additional weeks and then discontinue any immobilization. She agrees with that plan. I scheduled an appointment for them on December 31, 2019 at 2:00 PM with my PA Isaiah Zimmer for probable short arm cast or brace prescription. YESSENIA OLIVAS MD Dec 21, 2019 15:47
[2019-12-21 17:00] VITALS: BP 190/66
[2019-12-21] MEDS ORDERED: CARB1TAB22 PO (18:48)
[2019-12-21] MEDS ORDERED: DONE10TA7 PO (18:48)
[2019-12-21] MEDS ORDERED: RANI150T2 PO (18:48)
[2019-12-21] MEDS ORDERED: SULF500T36 PO (18:48)
[2019-12-21] MEDS ORDERED: ROPI1TAB2 PO (18:48)
[2019-12-21] MEDS ORDERED: LISI30TA4 PO (18:48)
[2019-12-21] MEDS ORDERED: METO25TA4 PO (18:48)
[2019-12-21] MEDS ORDERED: SIMV40TA18 PO (18:48)
[2019-12-21] MEDS ORDERED: ACET500T68 PO (18:48)
[2019-12-21] MEDS ORDERED: TRIA10.8 NS (18:48)
[2019-12-21] MEDS ORDERED: ACETAMINOPHEN 500 MG TABLET PO PRN (19:15)
[2019-12-21 19:33] VITALS: BP 121/50
[2019-12-21] MEDS ORDERED: ENOXAPARIN 40 MG/0.4 ML SYRINGE. SQ SCH (21:00)
[2019-12-21] MEDS ORDERED: SIMVASTATIN 40 MG TABLET. PO SCH (21:00)
[2019-12-21] MEDS: sulfaSALAzine 500 MG TABLET PO SCH (21:44)
[2019-12-21] MEDS: rOPINIRole 1 MG TABLET. PO SCH (21:45)
[2019-12-21] MEDS: METOPROLOL TART IMMED RELEASE 25 MG TABLET. PO SCH (21:45)
[2019-12-21] MEDS: CARBIDOPA/LEVODOPA 25/100MG TABLET PO SCH (21:45)
[2019-12-21] MEDS: ACETAMINOPHEN 325 MG TABLET. PO PRN (21:48)
[2019-12-21 23:04] VITALS: BP 123/35
[2019-12-22 03:04] VITALS: BP 110/52
[2019-12-22] MEDS: IV NORMAL SALINE 1000ML BAG 1,000 ML IV SCH (03:38)
[2019-12-22 07:00] VITALS: BP 129/49
[2019-12-22] MEDS ORDERED: LISINOPRIL 10 MG TABLET PO SCH (09:00)
[2019-12-22] MEDS ORDERED: FLUTICASONE 50MCG/NASAL SPRAY 16GM BOTTLE. NS SCH (09:00)
[2019-12-22] MEDS ORDERED: DONEPEZIL HCL 10 MG TABLET. PO SCH (09:00)
[2019-12-22] MEDS ORDERED: FAMOTIDINE 20 MG TABLET. PO SCH (09:00)
--- NOTE | 2019-12-22 09:02 | PDOC ---
PROGRESS NOTES Chief Complaint Chief Complaint A/P; Left wrist: acute comminuted fracture transversely oriented involving the left radial metadiaphysis with intra-articular extension. There is a displaced ulnar styloid process fracture. Mild widening of the scapholunate interval measuring up to 3 mm. Scaphoid and Carpal bones intact. Multiple falls x 2 in 2 weeks Dementia Gait instability Afib High fall risk Parkinson's disease HLD OA - notable on Xrays History of Present Illness History of Present Illness Ms Schmidt is an 79yo F w/ PMHx Dementia, High Cholesterol, Hypertension, Parkinsons, Afib, OA presented via EMS with complaining of a fall and pain in left wrist and right hand. Patient had 2 FALLS , last 2 weeks and had a fall from a standing position at her assisting living home without loss of co nsciousness. Complaining of pain in left side of forehead, left wrist and right thumb and rated her pain GAIT IS UNSTABLE, High fall risk, admitted. Her pain is well controlled today. Per discussion with her and son bedside she had a rough year in 2019, had her driving privileges removed and sold all her possessions and moved into [facility] in [place]. She has slipped in the shower 2 weeks ago and mis-stepped into her kitchen prior to this admission. Seen and splinted for left wrist fracture. Has orthopedic surgery consultation and follow up. No surgical intervention at this time. No syncope, no orthostasis. No CP or SOB. Significant parkinsonian symptoms. She has significant resources at her [facility] and wishes to return there with [facility]. Vitals Vitals Vital Signs Date Time Temp Pulse Resp B/P (MAP) Pulse Ox O2 Delivery O2 Flow Rate FiO2 12/22/19 03:04 98.8 75 18 110/52 (71) 98 Room Air 98.8 Physical Exam General: Alert, Cooperative, No acute distress Abdomen: Normal bowel sounds, Soft Extremities: No cyanosis Labs LABS Laboratory Tests Test 12/21/19 12:30 12/21/19 14:50 White Blood Count 3.6 x10^3/uL (4.0-11.0) Red Blood Count 4.08 x10^6/uL (3.50-5.40) Hemoglobin 12.4 g/dL (12.0-15.5) Hematocrit 37.7 % (36.0-47.0) Mean Corpuscular Volume 92 fL (79-100) Mean Corpuscular Hemoglobin 30 pg (25-35) Mean Corpuscular Hemoglobin Concent 33 g/dL (31-37) Red Cell Distribution Width 13.2 % (11.5-14.5) Platelet Count 196 x10^3/uL (140-400) Neutrophils (%) (Auto) 70 % (31-73) Lymphocytes (%) (Auto) 18 % (24-48) Monocytes (%) (Auto) 10 % (0-9) Eosinophils (%) (Auto) 2 % (0-3) Basophils (%) (Auto) 0 % (0-3) Neutrophils # (Auto) 2.5 x10^3/uL (1.8-7.7) Lymphocytes # (Auto) 0.7 x10^3/uL (1.0-4.8) Monocytes # (Auto) 0.3 x10^3/uL (0.0-1.1) Eosinophils # (Auto) 0.1 x10^3/uL (0.0-0.7) Basophils # (Auto) 0.0 x10^3/uL (0.0-0.2) Prothrombin Time 13.0 SEC (11.7-14.0) Prothromb Time International Ratio 1.0 (0.8-1.1) Sodium Level 143 mmol/L (136-145) Potassium Level 4.4 mmol/L (3.5-5.1) Chloride Level 107 mmol/L (98-107) Carbon Dioxide Level 28 mmol/L (21-32) Anion Gap 8 (6-14) Blood Urea Nitrogen 16 mg/dL (7-20) Creatinine 0.7 mg/dL (0.6-1.0) Estimated GFR (Cockcroft-Gault) 80.3 BUN/Creatinine Ratio 23 (6-20) Glucose Level 93 mg/dL (70-99) Calcium Level 9.0 mg/dL (8.5-10.1) Total Bilirubin 0.4 mg/dL (0.2-1.0) Aspartate Amino Transf (AST/SGOT) 18 U/L (15-37) Alanine Aminotransferase (ALT/SGPT) < 6 U/L (14-59) Alkaline Phosphatase 61 U/L (46-116) Total Protein 6.7 g/dL (6.4-8.2) Albumin 3.5 g/dL (3.4-5.0) Albumin/Globulin Ratio 1.1 (1.0-1.7) Urine Collection Type Unknown Urine Color Yellow Urine Clarity Clear Urine pH 7.5 Urine Specific [place] 1.010 Urine Protein Negative mg/dL (NEG-TRACE) Urine Glucose (UA) Negative mg/dL (NEG) Urine Ketones (Stick) Negative mg/dL (NEG) Urine Blood Negative (NEG) Urine Nitrite Negative (NEG) Urine Bilirubin Negative (NEG) Urine Urobilinogen Dipstick 0.2 mg/dL (0.2 mg/dL) Urine Leukocyte Esterase Negative (NEG) Urine RBC Occ /HPF (0-2) Urine WBC Occ /HPF (0-4) Urine Squamous Epithelial Cells Occ /LPF Urine Bacteria 0 /HPF (0-FEW) Assessment and Plan Assessmemt and Plan Problems Medical Problems: (1) Closed fracture of distal end of left radius with ulna Status: Acute (2) Contusion of right hand Status: Acute (3) Facial contusion Status: Acute (4) Frequent falls Status: Acute Comment Review of Relevant I have reviewed the following items zulema (where applicable) has been applied. Labs Laboratory Tests Test 12/21/19 12:30 12/21/19 14:50 White Blood Count 3.6 x10^3/uL (4.0-11.0) Red Blood Count 4.08 x10^6/uL (3.50-5.40) Hemoglobin 12.4 g/dL (12.0-15.5) Hematocrit 37.7 % (36.0-47.0) Mean Corpuscular Volume 92 fL (79-100) Mean Corpuscular Hemoglobin 30 pg (25-35) Mean Corpuscular Hemoglobin Concent 33 g/dL (31-37) Red Cell Distribution Width 13.2 % (11.5-14.5) Platelet Count 196 x10^3/uL (140-400) Neutrophils (%) (Auto) 70 % (31-73) Lymphocytes (%) (Auto) 18 % (24-48) Monocytes (%) (Auto) 10 % (0-9) Eosinophils (%) (Auto) 2 % (0-3) Basophils (%) (Auto) 0 % (0-3) Neutrophils # (Auto) 2.5 x10^3/uL (1.8-7.7) Lymphocytes # (Auto) 0.7 x10^3/uL (1.0-4.8) Monocytes # (Auto) 0.3 x10^3/uL (0.0-1.1) Eosinophils # (Auto) 0.1 x10^3/uL (0.0-0.7) Basophils # (Auto) 0.0 x10^3/uL (0.0-0.2) Prothrombin Time 13.0 SEC (11.7-14.0) Prothromb Time International Ratio 1.0 (0.8-1.1) Sodium Level 143 mmol/L (136-145) Potassium Level 4.4 mmol/L (3.5-5.1) Chloride Level 107 mmol/L (98-107) Carbon Dioxide Level 28 mmol/L (21-32) Anion Gap 8 (6-14) Blood Urea Nitrogen 16 mg/dL (7-20) Creatinine 0.7 mg/dL (0.6-1.0) Estimated GFR (Cockcroft-Gault) 80.3 BUN/Creatinine Ratio 23 (6-20) Glucose Level 93 mg/dL (70-99) Calcium Level 9.0 mg/dL (8.5-10.1) Total Bilirubin 0.4 mg/dL (0.2-1.0) Aspartate Amino Transf (AST/SGOT) 18 U/L (15-37) Alanine Aminotransferase (ALT/SGPT) < 6 U/L (14-59) Alkaline Phosphatase 61 U/L (46-116) Total Protein 6.7 g/dL (6.4-8.2) Albumin 3.5 g/dL (3.4-5.0) Albumin/Globulin Ratio 1.1 (1.0-1.7) Urine Collection Type Unknown Urine Color Yellow Urine Clarity Clear Urine pH 7.5 Urine Specific [place] 1.010 Urine Protein Negative mg/dL (NEG-TRACE) Urine Glucose (UA) Negative mg/dL (NEG) Urine Ketones (Stick) Negative mg/dL (NEG) Urine Blood Negative (NEG) Urine Nitrite Negative (NEG) Urine Bilirubin Negative (NEG) Urine Urobilinogen Dipstick 0.2 mg/dL (0.2 mg/dL) Urine Leukocyte Esterase Negative (NEG) Urine RBC Occ /HPF (0-2) Urine WBC Occ /HPF (0-4) Urine Squamous Epithelial Cells Occ /LPF Urine Bacteria 0 /HPF (0-FEW) Laboratory Tests Test 12/21/19 12:30 12/21/19 14:50 White Blood Count 3.6 x10^3/uL (4.0-11.0) Red Blood Count 4.08 x10^6/uL (3.50-5.40) Hemoglobin 12.4 g/dL (12.0-15.5) Hematocrit 37.7 % (36.0-47.0) Mean Corpuscular Volume 92 fL (79-100) Mean Corpuscular Hemoglobin 30 pg (25-35) Mean Corpuscular Hemoglobin Concent 33 g/dL (31-37) Red Cell Distribution Width 13.2 % (11.5-14.5) Platelet Count 196 x10^3/uL (140-400) Neutrophils (%) (Auto) 70 % (31-73) Lymphocytes (%) (Auto) 18 % (24-48) Monocytes (%) (Auto) 10 % (0-9) Eosinophils (%) (Auto) 2 % (0-3) Basophils (%) (Auto) 0 % (0-3) Neutrophils # (Auto) 2.5 x10^3/uL (1.8-7.7) Lymphocytes # (Auto) 0.7 x10^3/uL (1.0-4.8) Monocytes # (Auto) 0.3 x10^3/uL (0.0-1.1) Eosinophils # (Auto) 0.1 x10^3/uL (0.0-0.7) Basophils # (Auto) 0.0 x10^3/uL (0.0-0.2) Prothrombin Time 13.0 SEC (11.7-14.0) Prothromb Time International Ratio 1.0 (0.8-1.1) Sodium Level 143 mmol/L (136-145) Potassium Level 4.4 mmol/L (3.5-5.1) Chloride Level 107 mmol/L (98-107) Carbon Dioxide Level 28 mmol/L (21-32) Anion Gap 8 (6-14) Blood Urea Nitrogen 16 mg/dL (7-20) Creatinine 0.7 mg/dL (0.6-1.0) Estimated GFR (Cockcroft-Gault) 80.3 BUN/Creatinine Ratio 23 (6-20) Glucose Level 93 mg/dL (70-99) Calcium Level 9.0 mg/dL (8.5-10.1) Total Bilirubin 0.4 mg/dL (0.2-1.0) Aspartate Amino Transf (AST/SGOT) 18 U/L (15-37) Alanine Aminotransferase (ALT/SGPT) < 6 U/L (14-59) Alkaline Phosphatase 61 U/L (46-116) Total Protein 6.7 g/dL (6.4-8.2) Albumin 3.5 g/dL (3.4-5.0) Albumin/Globulin Ratio 1.1 (1.0-1.7) Urine Collection Type Unknown Urine Color Yellow Urine Clarity Clear Urine pH 7.5 Urine Specific [place] 1.010 Urine Protein Negative mg/dL (NEG-TRACE) Urine Glucose (UA) Negative mg/dL (NEG) Urine Ketones (Stick) Negative mg/dL (NEG) Urine Blood Negative (NEG) Urine Nitrite Negative (NEG) Urine Bilirubin Negative (NEG) Urine Urobilinogen Dipstick 0.2 mg/dL (0.2 mg/dL) Urine Leukocyte Esterase Negative (NEG) Urine RBC Occ /HPF (0-2) Urine WBC Occ /HPF (0-4) Urine Squamous Epithelial Cells Occ /LPF Urine Bacteria 0 /HPF (0-FEW) Medications Current Medications Fentanyl Citrate (Fentanyl 2ml Vial) 50 mcg 1X ONCE IVP ; Start 12/21/19 at 11:45; Stop 12/21/19 at 11:58; Status DC Fentanyl Citrate (Fentanyl 2ml Vial) 50 mcg 1X ONCE IVP Last administered on 12/21/19at 12:38; Start 12/21/19 at 12:00; Stop 12/21/19 at 12:01; Status DC Ondansetron HCl (Zofran) 4 mg 1X ONCE IVP Last administered on 12/21/19at 12:38; Start 12/21/19 at 12:15; Stop 12/21/19 at 12:16; Status DC Fentanyl Citrate (Fentanyl 2ml Vial) 50 mcg PRN Q2HR PRN IV PAIN; Start 12/21/19 at 13:00; Stop 12/21/19 at 21:00; Status DC Sodium Chloride (Normal Saline Flush) 3 ml QSHIFT PRN IV AFTER MEDS AND BLOOD DRAWS; Start 12/21/19 at 13:30 Sodium Chloride 1,000 ml @ 60 mls/hr [id number] IV Last administered on 12/22/19at 03:38; Start 12/21/19 at 14:00 Ondansetron HCl (Zofran) 4 mg PRN Q4HRS PRN IV NAUSEA/VOMITING; Start 12/21/19 at 13:30 Acetaminophen (Tylenol) 650 mg PRN Q4HRS PRN PO TEMP OVER 100.4F OR MILD PAIN Last administered on 12/21/19at 21:48; Start 12/21/19 at 13:30 Clonidine HCl (Catapres) 0.1 mg PRN Q6HRS PRN PO SBP>160 OR DBP>90; Start 12/21/19 at 13:30 Sodium Monofluorophosphate (Fleet Adult) 133 ml PRN DAILY PRN VA CONSTIPATION; Start 12/21/19 at 13:30 Docusate Sodium (Colace) 100 mg PRN BID PRN PO CONSTIPATION; Start 12/21/19 at 13:30 Albuterol Sulfate (Ventolin Neb Soln) 2.5 mg PRN Q4HRS PRN NEB SHORTNESS OF BREATH; Start 12/21/19 at 13:30 Guaifenesin (Robitussin) 200 mg PRN Q4HRS PRN PO COUGH; Start 12/21/19 at 13:30 Lorazepam (Ativan Inj) 2 mg PRN Q4HRS PRN IV ANXIETY / AGITATION; Start 12/21/19 at 13:30 Hydromorphone HCl (Dilaudid) 0.5 mg PRN Q3HRS PRN IV SEVERE PAIN 7-10 Last administered on 12/21/19at 14:37; Start 12/21/19 at 13:30 Enoxaparin Sodium (Lovenox 40mg Syringe) 40 mg Q24H SQ Last administered on 12/21/19at 21:44; Start 12/21/19 at 21:00 Acetaminophen (Tylenol) 500 mg PRN BID PRN PO pain or fever; Start 12/21/19 at 19:15; Status UNV Carbidopa/Levodopa (Sinemet 25/100) 1 tab TID PO Last administered on 12/21/19at 21:45; Start 12/21/19 at 21:00 Donepezil HCl (Aricept) 10 mg DAILY PO ; Start 12/22/19 at 09:00 Metoprolol Tartrate (Lopressor) 25 mg BID PO Last administered on 12/21/19at 21:45; Start 12/21/19 at 21:00 Ropinirole HCl (Requip) 1 mg BID PO Last administered on 12/21/19at 21:45; Start 12/21/19 at 21:00 Simvastatin (Zocor) 40 mg QHS PO Last administered on 12/21/19at 21:45; Start 12/21/19 at 21:00 Lisinopril (Prinivil) 30 mg DAILY PO ; Start 12/22/19 at 09:00 Famotidine (Pepcid) 20 mg DAILY PO ; Start 12/22/19 at 09:00 Sulfasalazine (Azulfidine) 500 mg BID PO Last administered on 12/21/19at 21:44; Start 12/21/19 at 21:00 Fluticasone Propionate (Flonase) 2 spray DAILY NS ; Start 12/22/19 at 09:00 Active Scripts Active Reported Acetaminophen 500 Mg Tablet 1 Tab PO PRN BID PRN 15 Days Carbidopa-Levodopa 25-100 Tab (Carbidopa/Levodopa) 1 Each Tablet 1 Tab PO TID [address] (Sulfasalazine) 500 Mg Tablet.dr 500 Mg PO BID Ranitidine Hcl 150 Mg Tablet 1 Tab PO BID Metoprolol Tartrate 25 Mg Tablet 1 Tab PO BID Nasacort (Triamcinolone Acetonide) 10.8 Ml [place] 55 Mcg NS DAILY 30 Days Simvastatin 40 Mg Tablet 1 Tab PO QHS Ropinirole Hcl 1 Mg Tablet 1 Mg PO BID Lisinopril 30 Mg Tablet 1 Tab PO DAILY Donepezil Hcl 10 Mg Tablet 1 Tab PO DAILY Vitals/I & O Vital Sign - Last 24 Hours 12/21/19 12/21/19 12/21/19 12/21/19 10:50 11:45 12:45 13:45 Temp 98.1 98.1 Pulse 77 81 72 68 Resp 18 16 18 18 B/P (MAP) 142/77 (98) Pulse Ox 98 99 99 97 O2 Delivery Room Air 12/21/19 12/21/19 12/21/19 12/21/19 14:45 15:45 17:00 19:33 Temp 98.1 97.5 98.1 97.5 Pulse 63 66 59 63 Resp 16 18 18 16 B/P (MAP) 190/66 (107) 121/50 (73) Pulse Ox 97 97 95 94 O2 Delivery Room Air Room Air 12/21/19 12/21/19 12/21/19 12/22/19 20:00 21:45 23:04 03:04 Temp 98.0 98.8 98.0 98.8 Pulse 63 63 75 Resp 18 18 B/P (MAP) 121/50 123/35 (64) 110/52 (71) Pulse Ox 96 98 O2 Delivery Room Air Room Air Room Air Intake and Output 12/21/19 12/21/19 12/22/19 15:00 23:00 07:00 Intake Total 240 ml 60 ml Balance 240 ml 60 ml NELLIE ALAS MD Dec 22, 2019 09:02
[2019-12-22] MEDS: rOPINIRole 1 MG TABLET. PO SCH (09:13)
[2019-12-22] MEDS: sulfaSALAzine 500 MG TABLET PO SCH (09:13)
[2019-12-22] MEDS: CARBIDOPA/LEVODOPA 25/100MG TABLET PO SCH ×2 (09:13→14:40)
[2019-12-22] MEDS: METOPROLOL TART IMMED RELEASE 25 MG TABLET. PO SCH (09:15)
[2019-12-22] MEDS: ACETAMINOPHEN 325 MG TABLET. PO PRN (09:26)
[2019-12-22 11:00] VITALS: BP 126/43
[2019-12-22] MEDS ORDERED: TRAM50TA PO (11:11)
--- NOTE | 2019-12-22 11:13 | SNU/HH DC ---
DISCHARGE WITH HOME HEALTH DISCHARGE INFORMATION: Discharge Date: Dec 22, 2019 Final Diagnosis: Problems Medical Problems: (1) Closed fracture of distal end of left radius with ulna Status: Acute (2) Contusion of right hand Status: Acute (3) Facial contusion Status: Acute (4) Frequent falls Status: Acute Condition on Discharge: Stable CODE STATUS: Code Status: DNR/DNI HOME HEALTH: Face to Face: I certify this patient is under my care and that I, or a nurse practitioner or physician's assistant athletic trainer working with me, had a face to face encounter that meets the physician face to face encounter requirements with this patient on 12/22/2019. Medical Complications: Falls, FX Correction For: Assess/Skilled Observatio, Medication Management, Pain Management RN For Eval/Treatment: Yes Physical Therapy For: Evalulation/Treatment Occupational Therapy For: Evaluation/Treatment Home Health Aide For: Self-care PREVENTIVE MEDICINE PHYSICIAN For: Community Resources Pt Meets Homebound Status: Frequent falls w/ injury POST DISCHARGE ORDERS: Activity Instructions for Disc: Resume previous activity Weight Bearing Status after Di: Full weight bearing DIET AFTER DISCHARGE: Regular Wound/Incision Care: Ice to area for comfort, Keep wound/cast CDI, Keep wound elevated CHECKS AFTER DISCHARGE: Checks after discharge: Check blood press - daily FOLLOW-UP: Follow up with: Dr. Lev Rodríguez 4-6 weeks TREATMENT/EQUIPMENT ORDERS: Adaptive Equipment Issued: Front wheeled walker CERTIFICATION STATEMENT: Certification Statement: Certification Statement: Based on the above finding, I certify that this patient is confined to the home and needs intermittent half-way care, physical therapy and/or speech therapy, or continues to need occupational therapy.~ This patient is under my care, and I have initiated the establishment of the plan of care.~ This patient will be followed by myself or a community physician who will periodically review the plan of care. Home Meds Active Scripts Tramadol Hcl (TRAMADOL HCL) 50 Mg Tablet, 50 MG PO PRN Q6HRS PRN for PAIN for 6 Days, #24 TAB Prov:NELLIE ALAS MD 12/22/19 Reported Medications Acetaminophen (ACETAMINOPHEN) 500 Mg Tablet, 1 TAB PO PRN BID PRN for pain or fever for 15 Days, #60 TAB 0 Refills 12/21/19 Carbidopa/Levodopa (CARBIDOPA-LEVODOPA 25-100 TAB) 1 Each Tablet, 1 TAB PO TID for memory loss for 30 Days, #90 TAB 0 Refills 12/21/19 Sulfasalazine (SULFASALAZINE DR) 500 Mg Tablet.dr, 500 MG PO BID for unknown, TAB.SR 12/21/19 Ranitidine Hcl (RANITIDINE HCL) 150 Mg Tablet, 1 TAB PO BID for acid reflux, #180 TAB 3 Refills 12/21/19 Metoprolol Tartrate (METOPROLOL TARTRATE) 25 Mg Tablet, 1 TAB PO BID for htn, #180 TAB 1 Refill 12/21/19 Triamcinolone Acetonide (NASACORT) 10.8 Ml [place], 55 MCG NS DAILY for allergies for 30 Days, ML 0 Refills 12/21/19 Simvastatin (SIMVASTATIN) 40 Mg Tablet, 1 TAB PO QHS for high cholesterol, #30 TAB 5 Refills 12/21/19 Ropinirole Hcl (ROPINIROLE HCL) 1 Mg Tablet, 1 MG PO BID for unknown, TAB 12/21/19 Lisinopril (LISINOPRIL) 30 Mg Tablet, 1 TAB PO DAILY for HTN, #30 TAB 5 Refills 12/21/19 Donepezil Hcl (DONEPEZIL HCL) 10 Mg Tablet, 1 TAB PO DAILY for unknwon, #90 TAB 1 Refill 12/21/19 NELLIE LAAS MD Dec 22, 2019 11:13
--- NOTE | 2019-12-22 11:19 | PDOC3 ---
Discharge Summary Visit Information Date of Admission: Dec 21, 2019 Date of Discharge: Dec 22, 2019 Admitting Diagnosis: Falll with left wrist fracture Final Diagnosis Problems Medical Problems: (1) Closed fracture of distal end of left radius with ulna Status: Acute (2) Contusion of right hand Status: Acute (3) Facial contusion Status: Acute (4) Frequent falls Status: Acute Brief Hospital Course Allergies Allergies Coded Allergies Type Severity Reaction Last Updated Verified shellfish derived Allergy Intermediate Hives 12/21/19 Yes Vital Signs Vital Signs Date Time Temp Pulse Resp B/P (MAP) Pulse Ox O2 Delivery O2 Flow Rate FiO2 12/22/19 09:22 63 129/49 12/22/19 07:00 98.0 18 96 Room Air 98.0 Lab Results Laboratory Tests Test 12/21/19 12:30 12/21/19 14:50 White Blood Count 3.6 x10^3/uL (4.0-11.0) Red Blood Count 4.08 x10^6/uL (3.50-5.40) Hemoglobin 12.4 g/dL (12.0-15.5) Hematocrit 37.7 % (36.0-47.0) Mean Corpuscular Volume 92 fL (79-100) Mean Corpuscular Hemoglobin 30 pg (25-35) Mean Corpuscular Hemoglobin Concent 33 g/dL (31-37) Red Cell Distribution Width 13.2 % (11.5-14.5) Platelet Count 196 x10^3/uL (140-400) Neutrophils (%) (Auto) 70 % (31-73) Lymphocytes (%) (Auto) 18 % (24-48) Monocytes (%) (Auto) 10 % (0-9) Eosinophils (%) (Auto) 2 % (0-3) Basophils (%) (Auto) 0 % (0-3) Neutrophils # (Auto) 2.5 x10^3/uL (1.8-7.7) Lymphocytes # (Auto) 0.7 x10^3/uL (1.0-4.8) Monocytes # (Auto) 0.3 x10^3/uL (0.0-1.1) Eosinophils # (Auto) 0.1 x10^3/uL (0.0-0.7) Basophils # (Auto) 0.0 x10^3/uL (0.0-0.2) Prothrombin Time 13.0 SEC (11.7-14.0) Prothromb Time International Ratio 1.0 (0.8-1.1) Sodium Level 143 mmol/L (136-145) Potassium Level 4.4 mmol/L (3.5-5.1) Chloride Level 107 mmol/L (98-107) Carbon Dioxide Level 28 mmol/L (21-32) Anion Gap 8 (6-14) Blood Urea Nitrogen 16 mg/dL (7-20) Creatinine 0.7 mg/dL (0.6-1.0) Estimated GFR (Cockcroft-Gault) 80.3 BUN/Creatinine Ratio 23 (6-20) Glucose Level 93 mg/dL (70-99) Calcium Level 9.0 mg/dL (8.5-10.1) Total Bilirubin 0.4 mg/dL (0.2-1.0) Aspartate Amino Transf (AST/SGOT) 18 U/L (15-37) Alanine Aminotransferase (ALT/SGPT) < 6 U/L (14-59) Alkaline Phosphatase 61 U/L (46-116) Total Protein 6.7 g/dL (6.4-8.2) Albumin 3.5 g/dL (3.4-5.0) Albumin/Globulin Ratio 1.1 (1.0-1.7) Urine Collection Type Unknown Urine Color Yellow Urine Clarity Clear Urine pH 7.5 Urine Specific [place] 1.010 Urine Protein Negative mg/dL (NEG-TRACE) Urine Glucose (UA) Negative mg/dL (NEG) Urine Ketones (Stick) Negative mg/dL (NEG) Urine Blood Negative (NEG) Urine Nitrite Negative (NEG) Urine Bilirubin Negative (NEG) Urine Urobilinogen Dipstick 0.2 mg/dL (0.2 mg/dL) Urine Leukocyte Esterase Negative (NEG) Urine RBC Occ /HPF (0-2) Urine WBC Occ /HPF (0-4) Urine Squamous Epithelial Cells Occ /LPF Urine Bacteria 0 /HPF (0-FEW) Laboratory Tests Test 12/21/19 12:30 12/21/19 14:50 White Blood Count 3.6 x10^3/uL (4.0-11.0) Red Blood Count 4.08 x10^6/uL (3.50-5.40) Hemoglobin 12.4 g/dL (12.0-15.5) Hematocrit 37.7 % (36.0-47.0) Mean Corpuscular Volume 92 fL (79-100) Mean Corpuscular Hemoglobin 30 pg (25-35) Mean Corpuscular Hemoglobin Concent 33 g/dL (31-37) Red Cell Distribution Width 13.2 % (11.5-14.5) Platelet Count 196 x10^3/uL (140-400) Neutrophils (%) (Auto) 70 % (31-73) Lymphocytes (%) (Auto) 18 % (24-48) Monocytes (%) (Auto) 10 % (0-9) Eosinophils (%) (Auto) 2 % (0-3) Basophils (%) (Auto) 0 % (0-3) Neutrophils # (Auto) 2.5 x10^3/uL (1.8-7.7) Lymphocytes # (Auto) 0.7 x10^3/uL (1.0-4.8) Monocytes # (Auto) 0.3 x10^3/uL (0.0-1.1) Eosinophils # (Auto) 0.1 x10^3/uL (0.0-0.7) Basophils # (Auto) 0.0 x10^3/uL (0.0-0.2) Prothrombin Time 13.0 SEC (11.7-14.0) Prothromb Time International Ratio 1.0 (0.8-1.1) Sodium Level 143 mmol/L (136-145) Potassium Level 4.4 mmol/L (3.5-5.1) Chloride Level 107 mmol/L (98-107) Carbon Dioxide Level 28 mmol/L (21-32) Anion Gap 8 (6-14) Blood Urea Nitrogen 16 mg/dL (7-20) Creatinine 0.7 mg/dL (0.6-1.0) Estimated GFR (Cockcroft-Gault) 80.3 BUN/Creatinine Ratio 23 (6-20) Glucose Level 93 mg/dL (70-99) Calcium Level 9.0 mg/dL (8.5-10.1) Total Bilirubin 0.4 mg/dL (0.2-1.0) Aspartate Amino Transf (AST/SGOT) 18 U/L (15-37) Alanine Aminotransferase (ALT/SGPT) < 6 U/L (14-59) Alkaline Phosphatase 61 U/L (46-116) Total Protein 6.7 g/dL (6.4-8.2) Albumin 3.5 g/dL (3.4-5.0) Albumin/Globulin Ratio 1.1 (1.0-1.7) Urine Collection Type Unknown Urine Color Yellow Urine Clarity Clear Urine pH 7.5 Urine Specific [place] 1.010 Urine Protein Negative mg/dL (NEG-TRACE) Urine Glucose (UA) Negative mg/dL (NEG) Urine Ketones (Stick) Negative mg/dL (NEG) Urine Blood Negative (NEG) Urine Nitrite Negative (NEG) Urine Bilirubin Negative (NEG) Urine Urobilinogen Dipstick 0.2 mg/dL (0.2 mg/dL) Urine Leukocyte Esterase Negative (NEG) Urine RBC Occ /HPF (0-2) Urine WBC Occ /HPF (0-4) Urine Squamous Epithelial Cells Occ /LPF Urine Bacteria 0 /HPF (0-FEW) Brief Hospital Course Ms Schmidt is an 79yo F w/ PMHx Dementia, High Cholesterol, Hypertension, Parkinsons, Afib, OA presented via EMS with complaining of a fall and pain in left wrist and right hand. Patient had 2 FALLS , last 2 weeks and had a fall from a standing position at her assisting living home without loss of consciousness. Complaining of pain in left side of forehead, left wrist and right thumb and rated her pain GAIT IS UNSTABLE, High fall risk, admitted. Her pain is well controlled today. Per discussion with her and son bedside she had a rough year in 2019, had her driving privileges removed and sold all her possessions and moved into [facility] in [place]. She has slipped in the shower 2 weeks ago and mis-stepped into her kitchen prior to this admission. Seen and splinted for left wrist fracture. Has orthopedic surgery consultation and follow up. No surgical intervention at this time. No syncope, no orthostasis. No CP or SOB. Significant parkinsonian symptoms. She has significant resources at her [facility] and wishes to return there with [facility]. Problem list: Left wrist: acute comminuted fracture transversely oriented involving the left radial metadiaphysis with intra-articular extension. There is a displaced ulnar styloid process fracture. Mild widening of the scapholunate interval measuring up to 3 mm. Scaphoid and Carpal bones intact. Multiple falls x 2 in 2 weeks Dementia Gait instability Afib High fall risk Parkinson's disease HLD OA - notable on Xrays Greater than 30 minutes spent on d/c to [facility] in [place] with [facility] per family request. Discharge Information Condition at Discharge: Improved Follow Up: Weeks (1) Disposition/Orders: D/C to Home w/ HH ([facility] [place] with [facility]) Scheduled Carbidopa/Levodopa (Carbidopa-Levodopa 25-100 Tab) 1 Each Tablet, 1 TAB PO TID for memory loss for 30 Days, #90 Ref 0 (Reported) Entered as Reported by: WU HUNT on 12/21/191847 Last Taken: Unknown Dose on Unknown Date & Time Last Action: Continued on 12/21/191905 by WU HUNT Donepezil Hcl (Donepezil Hcl) 10 Mg Tablet, 1 TAB PO DAILY for unknwon, #90 Ref 1 (Reported) Entered as Reported by: WU HUNT on 12/21/191847 Last Taken: Unknown Dose on Unknown Date & Time Last Action: Continued on 12/21/191905 by WU HUNT Lisinopril (Lisinopril) 30 Mg Tablet, 1 TAB PO DAILY for HTN, #30 Ref 5 (Reported) Entered as Reported by: WU HUNT on 12/21/191847 Last Taken: Unknown Dose on Unknown Date & Time Last Action: Converted on 12/21/191905 by WU HUNT Metoprolol Tartrate (Metoprolol Tartrate) 25 Mg Tablet, 1 TAB PO BID for htn, #180 Ref 1 (Reported) Entered as Reported by: WU HUNT on 12/21/191847 Last Taken: Unknown Dose on Unknown Date & Time Last Action: Continued on 12/21/191905 by WU HUNT Ranitidine Hcl (Ranitidine Hcl) 150 Mg Tablet, 1 TAB PO BID for acid reflux, #180 Ref 3 (Reported) Entered as Reported by: WU HUNT on 12/21/191847 Last Taken: Unknown Dose on Unknown Date & Time Last Action: Converted on 12/21/191905 by WU HUNT Ropinirole Hcl (Ropinirole Hcl) 1 Mg Tablet, 1 MG PO BID for unknown, (Reported) Entered as Reported by: WU HUNT on 12/21/191847 Last Taken: Unknown Dose on Unknown Date & Time Last Action: Continued on 12/21/191905 by WU HUNT Simvastatin (Simvastatin) 40 Mg Tablet, 1 TAB PO QHS for high cholesterol, #30 Ref 5 (Reported) Entered as Reported by: WU HUNT on 12/21/191847 Last Taken: Unknown Dose on Unknown Date & Time Last Action: Continued on 12/21/191905 by WU HUNT Sulfasalazine (Sulfasalazine Dr) 500 Mg Tablet.dr, 500 MG PO BID for unknown, (Reported) Entered as Reported by: WU HUNT on 12/21/191847 Last Taken: Unknown Dose on Unknown Date & Time Last Action: Converted on 12/21/191905 by WU HUNT Triamcinolone Acetonide (Nasacort) 10.8 Ml [place], 55 MCG NS DAILY for allergies for 30 Days, Ref 0 (Reported) Entered as Reported by: WU HUNT on 12/21/191847 Last Taken: Unknown Dose on Unknown Date & Time Last Action: Converted on 12/21/191905 by WU HUNT Scheduled PRN Acetaminophen (Acetaminophen) 500 Mg Tablet, 1 TAB PO PRN BID PRN for pain or fever for 15 Days, #60 Ref 0 (Reported) Entered as Reported by: WU HUNT on 12/21/191847 Last Taken: Unknown Dose on Unknown Date & Time Last Action: Continued on 12/21/191905 by WU HUNT Tramadol Hcl (Tramadol Hcl) 50 Mg Tablet, 50 MG PO PRN Q6HRS PRN for PAIN for 6 Days, #24 Prescribed by: NELLIE ALAS MD on 12/22/19 1111 NELLIE ALAS MD Dec 22, 2019 11:19
--- NOTE | 2019-12-22 14:54 | NUR ---
pt was discharged today to be taken back to the [facility] in [place], [place]. Her son Joseluis was the one that took her back to the facility. She was given a script for Tramadol PRN and also Dr Rodríguez was able to schedule the pt for f/u appt with him on Dec 31...wheeled pt down to the main entrance and son picked her up. Daniel Zhu RN
== END 2019-12-22 14:57 | disposition home or self-care (01) | DRG 563 ==
LOC: ER 11:22 → ED HOLD 13:26 → 6 SOUTH 16:58
PROVIDERS: ADMIT Family Medicine; ATTEND Family Medicine
DX: S52.612A Displaced fracture of left ulna styloid process, initial encounter for closed fracture (principal); G20 Parkinson's disease; F02.80 Dementia in other diseases classified elsewhere, unspecified severity, without behavioral disturbance, psychotic disturbance, mood disturbance, and anxiety; E78.00 Pure hypercholesterolemia, unspecified; E78.5 Hyperlipidemia, unspecified; W18.39XA Other fall on same level, initial encounter; S00.83XA Contusion of other part of head, initial encounter; S60.221A Contusion of right hand, initial encounter; M19.90 Unspecified osteoarthritis, unspecified site; I10 Essential (primary) hypertension; I48.91 Unspecified atrial fibrillation; Z91.013 Allergy to seafood; Y93.89 Activity, other specified; Y92.89 Other specified places as the place of occurrence of the external cause; Y99.8 Other external cause status; Z82.49 Family history of ischemic heart disease and other diseases of the circulatory system; Z91.81 History of falling
CPT/HCPCS: 29125; 36415; 70450; 71045; 72125; 72170; 73110; 73130; 80053; 81001; 85025; 85610; 96374; 96375; J1170; J1650; J2405; J3010; J7030; 99285-25; G0378

== ENCOUNTER 2020-04-02 16:04 | Emergency (ER) | payer MEDICARE ==
[~2020-04-02] VITALS: Ht 162.6 cm; Wt 54.0 kg
[~2020-04-02 16:04] MED LIST: ACET500T68 PO; CARB1TAB22 PO; DONE10TA7 PO; LISI30TA4 PO; METO25TA4 PO; RANI150T2 PO; ROPI1TAB4 PO; SIMV40TA18 PO; SULF500T36 PO; TRAM50TA PO; TRIA10.8 NS
[2020-04-02 16:44] LABS: BILIRUBIN,URINE NEGATIVE (NEG); CLARITY,URINE CLEAR; COLOR,URINE YELLOW; NITRITE,URINE NEGATIVE (NEG); PROTEIN,URINE NEGATIVE (NEG-TRACE); UROBILINOGEN,URINE 0.2 mg/dL (0.2 mg/dL)
[2020-04-02 16:46] LABS: BASO # 0.1 x10^3/uL (0.0-0.2); BASO % 2 % (0-3); EOS # 0.1 x10^3/uL (0.0-0.7); EOS % 3 % (0-3); HEMATOCRIT 40.4 % (36.0-47.0); HEMOGLOBIN 13.3 g/dL (12.0-15.5); LYMPH # 1.2 x10^3/uL (1.0-4.8); LYMPH % 30 % (24-48); MEAN CORPUSCULAR HEMOGLOBIN 30 pg (25-35); MEAN CORPUSCULAR HGB CONC 33 g/dL (31-37); MEAN CORPUSCULAR VOLUME 92 fL (79-100); MONO # 0.4 x10^3/uL (0.0-1.1); MONO % 11 % (0-9); NEUT # 2.1 x10^3/uL (1.8-7.7); NEUT % 53 % (31-73); PLATELET COUNT 177 x10^3/uL (140-400); RED BLOOD COUNT 4.42 x10^6/uL (3.50-5.40); RED CELL DISTRIBUTION WIDTH 13.7 % (11.5-14.5); WHITE BLOOD COUNT 3.9 x10^3/uL (4.0-11.0)
[2020-04-02 16:54] LABS: AMORPHOUS SEDIMENT,UR PRESENT /HPF; BACTERIA,URINE 0 /HPF (0-FEW); WBC,URINE 0 /HPF (0-4)
[2020-04-02 16:55] LABS: PROTHROMBIN TIME PATIENT 12.3 SEC (11.7-14.0)
[2020-04-02 16:57] LABS: ANION GAP 9 (6-14); BLOOD UREA NITROGEN 18 mg/dL (7-20); BUN/CREATININE RATIO 23 (6-20); CALCIUM 9.4 mg/dL (8.5-10.1); CARBON DIOXIDE 27 mmol/L (21-32); CHLORIDE 102 mmol/L (98-107); CREATININE 0.8 mg/dL (0.6-1.0); GFR 68.8; GLUCOSE 96 mg/dL (70-99); SODIUM 138 mmol/L (136-145)
[2020-04-02 17:03] LABS: ALBUMIN 4.1 g/dL (3.4-5.0); ALBUMIN/GLOBULIN RATIO 1.2 (1.0-1.7); ALK PHOS 53 U/L (46-116); AST (SGOT) 17 U/L (15-37); MAGNESIUM 2.1 mg/dL (1.8-2.4); TOTAL BILIRUBIN 0.4 mg/dL (0.2-1.0); TOTAL PROTEIN 7.5 g/dL (6.4-8.2)
[2020-04-02 17:04] LABS: ALT (SGPT) < 6 U/L (14-59)
--- NOTE | 2020-04-02 17:25 | PHYS DOC ---
Past Medical History Past Medical History: Hypertension Additional Past Medical Histor: parkinson's, L broken wrist 11/2019 Past Surgical History: No Surgical History Additional Past Surgical Histo: UNKNOWN Smoking Status: Never Smoker Alcohol Use: None General Adult EDM: Chief Complaint: WEAKNESS/GENERALIZED HPI: HPI: Patient is a 79 year old female who was brought here from [facility] due to generalized weakness. Patient has history of hypertension, Parkinson disease. Patient had taken her morning medication then she went to the exercise room to work out as her routine. She felt tired so she went back to her room to sleep. Then the next thing she knew, no people waking her up and EMS brought her here for evaluation. custodial reported that patient appeared to be weaker than normal. Patient denies any headache, no chest pain, no abdominal pain, no nausea vomiting. Patient denies any cough or fever. Patient denies any injury. Patient denies any trouble breathing. Review of Systems: Review of Systems: Constitutional: Denies fever or chills. [] Eyes: Denies change in visual acuity. [] HENT: Denies nasal congestion or sore throat. [] Respiratory: Denies cough or shortness of breath. [] Cardiovascular: Denies chest pain or edema. [] GI: Denies abdominal pain, nausea, vomiting, bloody stools or diarrhea. [] : Denies dysuria. [] Musculoskeletal: Denies back pain or joint pain. [] Integument: Denies rash. [] Neurologic: Denies headache, focal weakness or sensory changes. Positive for generalized weakness. Endocrine: Denies polyuria or polydipsia. [] Lymphatic: Denies swollen glands. [] Psychiatric: Denies depression or anxiety. [] Heart Score: Risk Factors: Risk Factors: DM, Current or recent (<one month) smoker, HTN, HLP, family history of CAD, obesity. Risk Scores: Score 0 - 3: 2.5% MACE over next 6 weeks - Discharge Home Score 4 - 6: 20.3% MACE over next 6 weeks - Admit for Clinical Observation Score 7 - 10: 72.7% MACE over next 6 weeks - Early Invasive Strategies Allergies: Allergies: Allergies Coded Allergies Type Severity Reaction Last Updated Verified shellfish derived Allergy Intermediate Hives 12/21/19 Yes Physical Exam: PE: Constitutional: Well developed, well nourished, no acute distress, non-toxic appearance. [] HENT: Normocephalic, atraumatic, bilateral external ears normal, oropharynx moist, no oral exudates, nose normal. [] Eyes: PERRLA, EOMI, conjunctiva normal, no discharge. [] Neck: Normal range of motion, no tenderness, supple, no stridor. [] Cardiovascular:Heart rate regular rhythm, no murmur [] Lungs & Thorax: Bilateral breath sounds clear to auscultation [] Abdomen: Bowel sounds normal, soft, no tenderness, no masses, no pulsatile masses. [] Skin: Warm, dry, no erythema, no rash. [] Back: No tenderness, no CVA tenderness. [] Extremities: No tenderness, no cyanosis, no clubbing, ROM intact, no edema. [] Neurologic: Alert and oriented X 3, normal motor function, normal sensory function, no focal deficits noted. Patient's speech is slow, but she said it is at her baseline due to Parkinson's disease. Psychologic: Affect normal, judgement normal, mood normal. [] Current Patient Data: Labs: Laboratory Tests Test 04/02/20 16:32 White Blood Count 3.9 x10^3/uL (4.0-11.0) L Red Blood Count 4.42 x10^6/uL (3.50-5.40) Hemoglobin 13.3 g/dL (12.0-15.5) Hematocrit 40.4 % (36.0-47.0) Mean Corpuscular Volume 92 fL (79-100) Mean Corpuscular Hemoglobin 30 pg (25-35) Mean Corpuscular Hemoglobin Concent 33 g/dL (31-37) Red Cell Distribution Width 13.7 % (11.5-14.5) Platelet Count 177 x10^3/uL (140-400) Neutrophils (%) (Auto) 53 % (31-73) Lymphocytes (%) (Auto) 30 % (24-48) Monocytes (%) (Auto) 11 % (0-9) H Eosinophils (%) (Auto) 3 % (0-3) Basophils (%) (Auto) 2 % (0-3) Neutrophils # (Auto) 2.1 x10^3/uL (1.8-7.7) Lymphocytes # (Auto) 1.2 x10^3/uL (1.0-4.8) Monocytes # (Auto) 0.4 x10^3/uL (0.0-1.1) Eosinophils # (Auto) 0.1 x10^3/uL (0.0-0.7) Basophils # (Auto) 0.1 x10^3/uL (0.0-0.2) Prothrombin Time 12.3 SEC (11.7-14.0) Prothrombin Time INR 1.0 (0.8-1.1) Activated Partial Thromboplast Time 32 SEC (24-38) Urine Collection Type U cath Urine Color Yellow Urine Clarity Clear Urine pH 6.0 (<5.0-8.0) Urine Specific [place] 1.010 (1.000-1.030) Urine Protein Negative mg/dL (NEG-TRACE) Urine Glucose (UA) Negative mg/dL (NEG) Urine Ketones (Stick) Negative mg/dL (NEG) Urine Blood Negative (NEG) Urine Nitrite Negative (NEG) Urine Bilirubin Negative (NEG) Urine Urobilinogen Dipstick 0.2 mg/dL (0.2 mg/dL) Urine Leukocyte Esterase Negative (NEG) Urine RBC 1-2 /HPF (0-2) Urine WBC 0 /HPF (0-4) Urine Amorphous Sediment Present /HPF Urine Bacteria 0 /HPF (0-FEW) Urine Mucus Mod /LPF Sodium Level 138 mmol/L (136-145) Potassium Level 4.0 mmol/L (3.5-5.1) Chloride Level 102 mmol/L (98-107) Carbon Dioxide Level 27 mmol/L (21-32) Anion Gap 9 (6-14) Blood Urea Nitrogen 18 mg/dL (7-20) Creatinine 0.8 mg/dL (0.6-1.0) Estimated GFR (Cockcroft-Gault) 68.8 BUN/Creatinine Ratio 23 (6-20) H Glucose Level 96 mg/dL (70-99) Calcium Level 9.4 mg/dL (8.5-10.1) Magnesium Level 2.1 mg/dL (1.8-2.4) Total Bilirubin 0.4 mg/dL (0.2-1.0) Aspartate Amino Transferase (AST) 17 U/L (15-37) Alanine Aminotransferase (ALT) < 6 U/L (14-59) L Alkaline Phosphatase 53 U/L (46-116) Troponin I Quantitative < 0.017 ng/mL (0.000-0.055) RL-Zed-K-Type Natriuretic Peptide 927 pg/mL (0-449) H Total Protein 7.5 g/dL (6.4-8.2) Albumin 4.1 g/dL (3.4-5.0) Albumin/Globulin Ratio 1.2 (1.0-1.7) Laboratory Tests 04/02/20 16:32 Laboratory Tests 04/02/20 16:32 Vital Signs: Vital Signs Date Time Temp Pulse Resp B/P (MAP) Pulse Ox O2 Delivery O2 Flow Rate FiO2 04/02/20 16:13 97.7 61 12 184/77 (112) 100 Room Air 97.7 EKG: EKG: EKG was done at 1613, heart rate of 53 bpm, sinus rhythm, no ST segment elevation, leftward axis. EKG was read by this physician [] Radiology/Procedures: Radiology/Procedures: Chest x-ray was done today, was read by this physician did not show any acute problem, Course & Med Decision Making: Course & Med Decision Making Pertinent Labs and Imaging studies reviewed. (See chart for details) Patient is an 79-year-old female who lives at assisted living at a jail, who was brought here by EMS from jail because of generalized weakness. Patient feels much better now, denies any headache, no chest pain, no abdominal pain, no cough or fever. Patient would like to go back home. Patient blood pressure is elevated. Patient has history of hypertension, she is on 2 different antihypertensive medications. Patient says she had taken her morning medications already. Patient will be discharged back to the assisted living facility, she really does not need to be admitted to hospital where she can be exposed to COVID-19 INFECTION. Dragon Disclaimer: Dragon Disclaimer: This electronic medical record was generated, in whole or in part, using a voice recognition dictation system. Departure Departure Impression: Primary Impression: Weakness Additional Impression: Hypertension Disposition: 01 HOME, SELF-CARE Condition: IMPROVED Referrals: UNKNOWN PCP NAME (PCP) follow up with your doctor in 2 days for reevaluation Patient Instructions: Hypertension, Weakness Additional Instructions: Thank you for visiting our Emergency Department. We appreciate you trusting us with your care. If any additional problems come up don't hesitate to return to visit us. Please follow up with your primary care provider so they can plan additional care if needed and know about the problem that you had. If symptoms worsen come back to the Emergency Department. Any concerning symptoms that start such as chest pain, shortness of air, weakness or numbness on one side of the body, running high fevers or any other concerning symptoms return to the ER. TRUPTI BERNSTEIN DO April 02, 2020 17:25
[2020-04-02] MEDS ORDERED: IV NORMAL SALINE 500ML BAG 500 ML IV ONE (17:30)
[2020-04-02] MEDS ORDERED: hydrALAZINE 20 MG/ML VIAL. IVP ONE (17:30)
[2020-04-02 17:40] VITALS: BP 183/74
--- NOTE | 2020-04-02 17:48 | RAD ---
AP portable chest radiograph 04/02/2020 Clinical History: Shortness of breath. An AP erect portable digital radiograph of the chest was obtained. Comparison study is dated 12/21/2019. The cardiac silhouette is mildly enlarged. The thoracic aorta is tortuous. Atherosclerotic calcification of the thoracic aorta is seen. No area of consolidation is noted. No pneumothorax or pleural effusion is seen. The osseous structures are unchanged. Impression: No area of consolidation is seen. Electronically signed by: Mark Davila MD (04/02/2020 5:45 PM) [id number]
== END 2020-04-02 18:00 | disposition home or self-care (01) ==
LOC: ER 16:04
DX: I10 Essential (primary) hypertension (principal); R53.1 Weakness; Z91.013 Allergy to seafood; Z98.890 Other specified postprocedural states
CPT/HCPCS: 36415; 71045; 80053; 81001; 83735; 83880; 84484; 85025; 85610; 85730; 96374; 99284; J0360; J7040

== ENCOUNTER 2021-01-24 19:22 | Inpatient (IN) | payer MEDICARE ==
[~2021-01-24] VITALS: Ht 167.6 cm; Wt 46.7 kg
--- NOTE | 2021-01-24 19:55 | PHYS DOC ---
Past Medical History Past Medical History: Hypertension Additional Past Medical Histor: parkinson's, L broken wrist 11/2019 Past Surgical History: No Surgical History Additional Past Surgical Histo: UNKNOWN Smoking Status: Never Smoker Alcohol Use: None General Adult EDM: Chief Complaint: ALTERED MENTAL STATUS HPI: HPI: Patient is a 80 year old female with a past medical history of congestive heart failure Parkinson's, dysphonia, memory loss presents today for altered mental status from a facility. Patient is confused at baseline and does not want to know why she is here today. The facility states she was more confused than normal today and was not performing tasks that she normally can perform. Patient states she is in no pain anywhere. Patient knows she is at the hospital but does not know why. Son is with her at bedside. Son states she was recently diagnosed with congestive heart failure within the last 45 days and has been seen at for this. Review of Systems: Review of Systems: Unable to obtain due to Parkinson's dementia Heart Score: Risk Factors: Risk Factors: DM, Current or recent (<one month) smoker, HTN, HLP, family history of CAD, obesity. Risk Scores: Score 0 - 3: 2.5% MACE over next 6 weeks - Discharge Home Score 4 - 6: 20.3% MACE over next 6 weeks - Admit for Clinical Observation Score 7 - 10: 72.7% MACE over next 6 weeks - Early Invasive Strategies Allergies: Allergies: Allergies Coded Allergies Type Severity Reaction Last Updated Verified shellfish derived Allergy Intermediate Hives 12/21/19 Yes Physical Exam: PE: General: alert, no acute distress. Skin: warm, dry and intact. Head:: Normocephalic, atraumatic. Neck: Trachea midline. Eyes: EOMI, Normal conjunctiva, No drainage CARDIOVASCULAR: Regular rate and rhythm RESPIRATORY: No respiratory distress Back: Full range of motion. MUSCULOSKELETAL: Full range of motion of bilateral upper and lower extremities. GASTROINTESTINAL: Abdomen soft without rebound or guarding. NEUROLOGICAL: Alert and noted to person, No neurological deficits observed Psychiatric: Cooperative. Normal judgment EKG: EKG: [] EKG performed at 2036 heart rate [address] elevation T wave inversion lead III no acute NV Radiology/Procedures: Radiology/Procedures: [] Course & Med Decision Making: Course & Med Decision Making Pertinent Labs and Imaging studies reviewed. (See chart for details) [] Patient was evaluated for chief complaint. Work-up consisted of laboratory analysis neurologic imaging and EKG. Results reviewed and discussed with patient's son. Wally Disclaimer: Wally Disclaimer: This electronic medical record was generated, in whole or in part, using a voice recognition dictation system. Departure Departure Impression: Primary Impression: Parkinson disease Additional Impression: Altered mental status Disposition: 09 ADMITTED INPT THIS HOSP Condition: STABLE Referrals: UNKNOWN PCP NAME (PCP) GERARDO CLARKE DO Jan 24, 2021 19:55
[2021-01-24 20:07] LABS: BASO % 1 % (0-3); EOS % 1 % (0-3); HEMATOCRIT 32.2 % (36.0-47.0); HEMOGLOBIN 10.7 g/dL (12.0-15.5); LYMPH # 0.6 x10^3/uL (1.0-4.8); LYMPH % 18 % (24-48); MEAN CORPUSCULAR HEMOGLOBIN 31 pg (25-35); MEAN CORPUSCULAR HGB CONC 33 g/dL (31-37); MEAN CORPUSCULAR VOLUME 92 fL (79-100); MONO # 0.4 x10^3/uL (0.0-1.1); MONO % 10 % (0-9); NEUT # 2.5 x10^3/uL (1.8-7.7); NEUT % 70 % (31-73); PLATELET COUNT 166 x10^3/uL (140-400); RED BLOOD COUNT 3.49 x10^6/uL (3.50-5.40); RED CELL DISTRIBUTION WIDTH 14.7 % (11.5-14.5); WHITE BLOOD COUNT 3.5 x10^3/uL (4.0-11.0)
[2021-01-24] MEDS ORDERED: IV NORMAL SALINE 1000ML BAG 1,000 ML IV ONE (20:15)
[2021-01-24 20:25] LABS: CALCIUM 8.6 mg/dL (8.5-10.1); CREATININE 0.8 mg/dL (0.6-1.0); GFR 68.7; POTASSIUM 4.7 mmol/L (3.5-5.1)
[2021-01-24 20:31] LABS: ALBUMIN 3.8 g/dL (3.4-5.0); ALBUMIN/GLOBULIN RATIO 1.5 (1.0-1.7); TOTAL BILIRUBIN 0.7 mg/dL (0.2-1.0); TOTAL PROTEIN 6.4 g/dL (6.4-8.2)
--- NOTE | 2021-01-24 20:38 | RAD ---
EXAM: XR CHEST 1V INDICATION: Reason: altered mental status, / Spl. Instructions: / History: . TECHNIQUE: Single view COMPARISON: 04/02/2020 chest x-ray FINDINGS: The heart size is moderately enlarged, similar to prior. The great vessels appear unremarkable. There is no hilar or mediastinal mass. The lungs are clear. There is no pleural effusion or pneumothorax. There are no significant osseous abnormalities. IMPRESSION: Stable mild cardiomegaly. No superimposed active cardiopulmonary disease. Electronically signed by: Bj Otoole MD (01/24/2021 8:35 PM) [facility] [place]
[2021-01-24 20:54] LABS: BILIRUBIN,URINE NEGATIVE (NEG); CLARITY,URINE CLEAR; COLOR,URINE YELLOW; NITRITE,URINE NEGATIVE (NEG); PH,URINE 5.5 (<5.0-8.0); PROTEIN,URINE NEGATIVE (NEG-TRACE); UROBILINOGEN,URINE 0.2 mg/dL (0.2 mg/dL)
--- NOTE | 2021-01-24 20:57 | EKG ---
[facility] [address] [place] [address] Test Date: 2021-01-24 Test Time: 20:37:25 Pat Name: BRIANA CHANEY Department: Room: Gender: F [employer]: : [id number] Requested By: GERARDO CLARKE Order Number: [id number] Reading MD: Measurements Intervals [place] Rate: 60 P: 31 VA: 184 QRS: -9 QRSD: 92 T: -2 QT: 414 QTc: 414 Interpretive Statements SINUS RHYTHM LEFT ATRIAL ABNORMALITY LEFTWARD AXIS ABNORMAL ECG RI6.02 No previous ECG available for comparison
[2021-01-24 21:03] LABS: BACTERIA,URINE 0 /HPF (0-FEW); HYALINE CASTS, URINE FEW /HPF; RBC,URINE 0 /HPF (0-2); WBC,URINE 0 /HPF (0-4)
--- NOTE | 2021-01-24 21:31 | RAD ---
Exam: CT head INDICATION: Altered mental status TECHNIQUE: Sequential axial images through the head were obtained without the administration of IV co ntrast. Comparisons: None FINDINGS: No focal parenchymal lesion or hemorrhage is identified. There is no midline shift or sulcal effaceme nt. Mild patchy evidence in the periventricular white matter, similar to prior. No acute vascular territo ry infarction is identified. Stanford-white distinction is preserved. The ventricular system is within normal limits without compression hydrocephalus. The basal cisterns are well maintained. The visualized portions of the paranasal sinuses and mastoid air cells are well-pneumatized. No acute fractures. IMPRESSION: No acute intracranial abnormality. Exposure: One or more of the following in the visualized dose reduction techniques were utilized for this examination: 1. Automated exposure control 2. Adjustment of the MA and/or KV according to patient size Use of iterative of reconstructive technique Electronically signed by: Debbi Maxwell MD (01/24/2021 9:29 PM) [facility]
[2021-01-24] MEDS ORDERED: ACETAMINOPHEN 325 MG TABLET. PO PRN (23:45)
[2021-01-24] MEDS ORDERED: ONDANSETRON PF 4 MG/2 ML VIAL. IV PRN (23:45)
[2021-01-24 23:48] VITALS: BP 172/72
[2021-01-25 04:00] VITALS: BP 171/72
--- NOTE | 2021-01-25 06:01 | NUR ---
Attempted to get patient med list from facility at time of admission, nurse at facility stated that the were short staffed and would get to it as soon as possible. 0600 and still have not received med list, will contact facility again.
[2021-01-25 07:00] VITALS: BP 145/65
--- NOTE | 2021-01-25 07:42 | PDOC1 ---
History and Physical Date of Service: DOS: DATE: 01/25/21 TIME: 07:32 Chief Complaint: Chief Complain: Altered mental status History of Present Illness: HPI: 80 year old female with a past medical history of congestive heart failure Parkinson's, dysphonia, memory loss presents today for altered mental status from a facility. Patient is confused at baseline and does not want to know why she is here today. The facility states she was more confused than normal today and was not performing tasks that she normally can perform. Patient states she is in no pain anywhere. Patient knows she is at the hospital but does not know why. Son is with her at bedside. Son states she was recently diagnosed with congestive heart failure within the last 45 days and has been seen at for this. Past Medical/Surgical History: PMH/PSH: Past Medical History: Hypertension, parkinson's, L broken wrist 11/2019 Past Surgical History: none Allergies: Allergies: Coded Allergies: shellfish derived (Verified Allergy, Intermediate, Hives, 12/21/19) Family History: Family History: Reviewed with no relevant findings Social History: Social History: Smoking Status: Never Smoker Alcohol Use: None Current Medications: Current Medications Current Medications Sodium Chloride 1,000 ml @ 1,000 mls/hr 1X ONCE IV Last administered on 01/24/21at 20:15; Start 01/24/21 at 20:15; Stop 01/24/21 at 21:14; Status DC Ondansetron HCl (Zofran) 4 mg PRN Q8HRS PRN IV NAUSEA/VOMITING 1ST CHOICE; Start 01/24/21 at 23:45; Stop 01/25/21 at 23:44 Acetaminophen (Tylenol) 650 mg PRN Q4HRS PRN PO FEVER > 100.3'F; Start 01/24/21 at 23:45; Stop 01/25/21 at 23:44 Active Scripts Active Tramadol Hcl 50 Mg Tablet 50 Mg PO PRN Q6HRS PRN 6 Days Reported Acetaminophen 500 Mg Tablet 1 Tab PO PRN BID PRN 15 Days Carbidopa-Levodopa 25-100 Tab (Carbidopa/Levodopa) 1 Each Tablet 1 Tab PO TID [address] (Sulfasalazine) 500 Mg Tablet.dr 500 Mg PO BID Ranitidine Hcl 150 Mg Tablet 1 Tab PO BID Metoprolol Tartrate 25 Mg Tablet 1 Tab PO BID Nasacort (Triamcinolone Acetonide) 10.8 Ml [place] 55 Mcg NS DAILY 30 Days Simvastatin 40 Mg Tablet 1 Tab PO QHS Ropinirole Hcl 1 Mg Tablet 1 Mg PO BID Lisinopril 30 Mg Tablet 1 Tab PO DAILY Donepezil Hcl 10 Mg Tablet 1 Tab PO DAILY ROS: Review of Systems Review of System Unable to obtain due to altered mental status Physical Exam: Vital Signs: Vital Signs Date Time Temp Pulse Resp B/P (MAP) Pulse Ox O2 Delivery O2 Flow Rate FiO2 01/25/21 04:00 98.2 57 20 171/72 (105) 95 Room Air 98.2 Physcial Exam: GEN: No apparent distress. Alert and oriented HEENT: Normal cephalic, atraumatic, external auditory canals are patent EYES: Extraocular muscles are intact, pupil are equally round and reactive to light and accommodation MUSCULOSKELETAL: Well developed , well nourished, good range of motion ENDOCRINE: No thyromegaly was palpated LYMPHATICS: No cervical chain or axillary nodes were noted HEMATOPOIETIC: No bruising NECK: Supple, no JVD, no thyromegaly was noted LUNGS: Clear to auscultation in all lung perez without rhonchi or wheezing HEART: RRR, S!, S2 present. Peripheral pulses intact, no obvious murmurs noted ABDOMEN: Soft, nontender. Positive bowel sounds, no organomegaly, normal bowel sounds EXTREMITIES: Without clubbing, cyanosis, or edema. Pedal pulses intact. Negative Homans sign NEUROLOGIC: Normal speech and tone. A&O x 3, moves all extremities, no obvious focal deficits PSYCHIATRIC: Normal affect, normal mood. Stable SKIN: No ulcerations or rashes, good skin turgor, no jaundice VASCULAR: Good capillary refill, neurovascular bundle appears to be intact Labs: Labs: Laboratory Tests Test 01/24/21 18:13 01/24/21 20:44 01/25/21 03:30 White Blood Count 3.5 x10^3/uL (4.0-11.0) Red Blood Count 3.49 x10^6/uL (3.50-5.40) Hemoglobin 10.7 g/dL (12.0-15.5) Hematocrit 32.2 % (36.0-47.0) Mean Corpuscular Volume 92 fL (79-100) Mean Corpuscular Hemoglobin 31 pg (25-35) Mean Corpuscular Hemoglobin Concent 33 g/dL (31-37) Red Cell Distribution Width 14.7 % (11.5-14.5) Platelet Count 166 x10^3/uL (140-400) Neutrophils (%) (Auto) 70 % (31-73) Lymphocytes (%) (Auto) 18 % (24-48) Monocytes (%) (Auto) 10 % (0-9) Eosinophils (%) (Auto) 1 % (0-3) Basophils (%) (Auto) 1 % (0-3) Neutrophils # (Auto) 2.5 x10^3/uL (1.8-7.7) Lymphocytes # (Auto) 0.6 x10^3/uL (1.0-4.8) Monocytes # (Auto) 0.4 x10^3/uL (0.0-1.1) Eosinophils # (Auto) 0.0 x10^3/uL (0.0-0.7) Basophils # (Auto) 0.0 x10^3/uL (0.0-0.2) Sodium Level 132 mmol/L (136-145) Potassium Level 4.7 mmol/L (3.5-5.1) Chloride Level 98 mmol/L (98-107) Carbon Dioxide Level 25 mmol/L (21-32) Anion Gap 9 (6-14) Blood Urea Nitrogen 21 mg/dL (7-20) Creatinine 0.8 mg/dL (0.6-1.0) Estimated GFR (Cockcroft-Gault) 68.7 BUN/Creatinine Ratio 26 (6-20) Glucose Level 91 mg/dL (70-99) Calcium Level 8.6 mg/dL (8.5-10.1) Total Bilirubin 0.7 mg/dL (0.2-1.0) Aspartate Amino Transf (AST/SGOT) 12 U/L (15-37) Alanine Aminotransferase (ALT/SGPT) 9 U/L (14-59) Alkaline Phosphatase 48 U/L (46-116) Troponin I Quantitative < 0.017 ng/mL (0.000-0.055) < 0.017 ng/mL (0.000-0.055) EC-Lpg-T-Type Natriuretic Peptide 481 pg/mL (0-449) Total Protein 6.4 g/dL (6.4-8.2) Albumin 3.8 g/dL (3.4-5.0) Albumin/Globulin Ratio 1.5 (1.0-1.7) Urine Collection Type U cath Urine Color Yellow Urine Clarity Clear Urine pH 5.5 (<5.0-8.0) Urine Specific [place] 1.010 (1.000-1.030) Urine Protein Negative mg/dL (NEG-TRACE) Urine Glucose (UA) Negative mg/dL (NEG) Urine Ketones (Stick) Trace mg/dL (NEG) Urine Blood Negative (NEG) Urine Nitrite Negative (NEG) Urine Bilirubin Negative (NEG) Urine Urobilinogen Dipstick 0.2 mg/dL (0.2 mg/dL) Urine Leukocyte Esterase Negative (NEG) Urine RBC 0 /HPF (0-2) Urine WBC 0 /HPF (0-4) Urine Bacteria 0 /HPF (0-FEW) Urine Hyaline Casts Few /HPF Urine Mucus Mod /LPF Laboratory Tests Test 01/24/21 18:13 01/24/21 20:44 01/25/21 03:30 White Blood Count 3.5 x10^3/uL (4.0-11.0) Red Blood Count 3.49 x10^6/uL (3.50-5.40) Hemoglobin 10.7 g/dL (12.0-15.5) Hematocrit 32.2 % (36.0-47.0) Mean Corpuscular Volume 92 fL (79-100) Mean Corpuscular Hemoglobin 31 pg (25-35) Mean Corpuscular Hemoglobin Concent 33 g/dL (31-37) Red Cell Distribution Width 14.7 % (11.5-14.5) Platelet Count 166 x10^3/uL (140-400) Neutrophils (%) (Auto) 70 % (31-73) Lymphocytes (%) (Auto) 18 % (24-48) Monocytes (%) (Auto) 10 % (0-9) Eosinophils (%) (Auto) 1 % (0-3) Basophils (%) (Auto) 1 % (0-3) Neutrophils # (Auto) 2.5 x10^3/uL (1.8-7.7) Lymphocytes # (Auto) 0.6 x10^3/uL (1.0-4.8) Monocytes # (Auto) 0.4 x10^3/uL (0.0-1.1) Eosinophils # (Auto) 0.0 x10^3/uL (0.0-0.7) Basophils # (Auto) 0.0 x10^3/uL (0.0-0.2) Sodium Level 132 mmol/L (136-145) Potassium Level 4.7 mmol/L (3.5-5.1) Chloride Level 98 mmol/L (98-107) Carbon Dioxide Level 25 mmol/L (21-32) Anion Gap 9 (6-14) Blood Urea Nitrogen 21 mg/dL (7-20) Creatinine 0.8 mg/dL (0.6-1.0) Estimated GFR (Cockcroft-Gault) 68.7 BUN/Creatinine Ratio 26 (6-20) Glucose Level 91 mg/dL (70-99) Calcium Level 8.6 mg/dL (8.5-10.1) Total Bilirubin 0.7 mg/dL (0.2-1.0) Aspartate Amino Transf (AST/SGOT) 12 U/L (15-37) Alanine Aminotransferase (ALT/SGPT) 9 U/L (14-59) Alkaline Phosphatase 48 U/L (46-116) Troponin I Quantitative < 0.017 ng/mL (0.000-0.055) < 0.017 ng/mL (0.000-0.055) XP-Fro-T-Type Natriuretic Peptide 481 pg/mL (0-449) Total Protein 6.4 g/dL (6.4-8.2) Albumin 3.8 g/dL (3.4-5.0) Albumin/Globulin Ratio 1.5 (1.0-1.7) Urine Collection Type U cath Urine Color Yellow Urine Clarity Clear Urine pH 5.5 (<5.0-8.0) Urine Specific [place] 1.010 (1.000-1.030) Urine Protein Negative mg/dL (NEG-TRACE) Urine Glucose (UA) Negative mg/dL (NEG) Urine Ketones (Stick) Trace mg/dL (NEG) Urine Blood Negative (NEG) Urine Nitrite Negative (NEG) Urine Bilirubin Negative (NEG) Urine Urobilinogen Dipstick 0.2 mg/dL (0.2 mg/dL) Urine Leukocyte Esterase Negative (NEG) Urine RBC 0 /HPF (0-2) Urine WBC 0 /HPF (0-4) Urine Bacteria 0 /HPF (0-FEW) Urine Hyaline Casts Few /HPF Urine Mucus Mod /LPF Images: Images CXR IMPRESSION: Stable mild cardiomegaly. No superimposed active cardiopulmonary disease. Negative head CT Assessment/Plan Assessment/Plan Acute metabolic encephalopathy Acute delirium or confusional state due to metabolic disturbance Hyponatremia Prerenal azotemia due to volume depletion Normocytic anemia due to chronic inflammation Failure to thrive, low BMI Severe protein malnutrition, low BMI 16.5 History of Parkinson's disease No obvious centrally acting medications currently. No obvious signs of infection on physical exam. No fevers or nuchal rigidity. CT head is negative for acute etiology. No history or signs of trauma Pending FeNa calculation for volume depletion Pending TSH, B12, folate levels Consider dementia prevention protocol Provide adequate lighting (open curtains during the day, turn the lights off at night) Provide frequent personal contact with family, friends, and staff or TV Encourage early and frequent mobilization Rehab screening ordered IV Haldol as needed for agitation, consider sitter as needed if non-redirectable agitation Avoid physical restraints, catheters or tubes, and benzodiazepines Nutrition consult if there is malnutrition or concern for vitamin deficiencies Continue IV fluids Lovenox for DVT prophylaxis ADA diet Full code Discussed with RN and SW Dispo inpatient management as above Justifications for Admission Other Justification JOSE JAY MD Jan 25, 2021 07:42
[2021-01-25] MEDS ORDERED: DEXTROSE 50% 25 GM / 50ML DISP.SYRIN. IV PRN (07:45)
[2021-01-25] MEDS ORDERED: ONDANSETRON PF 4 MG/2 ML VIAL. IVP PRN (07:45)
[2021-01-25] MEDS ORDERED: ACETAMINOPHEN 325 MG TABLET. PO PRN (07:45)
[2021-01-25] MEDS ORDERED: DOCUSATE SODIUM 100 MG CAPSULE. PO PRN (07:45)
[2021-01-25] MEDS ORDERED: SENNOSIDES 8.6 MG TABLET PO PRN (07:45)
[2021-01-25] MEDS ORDERED: traMADol 50 MG TABLET PO PRN (09:45)
[2021-01-25] MEDS ORDERED: LISI-130 PO (10:30)
[2021-01-25] MEDS ORDERED: NITR0.4T22 SL (10:30)
[2021-01-25] MEDS ORDERED: TRIA10.8 NS (10:30)
[2021-01-25] MEDS ORDERED: PEG15DRO2 OP (10:30)
[2021-01-25] MEDS ORDERED: FAMO20TA5 PO (10:31)
[2021-01-25] MEDS ORDERED: CARB1TAB22 PO (10:39)
[2021-01-25] MEDS ORDERED: METOPROLOL TART IMMED RELEASE 25 MG TABLET. PO SCH (11:00)
[2021-01-25 11:01] VITALS: BP 148/65
[2021-01-25] MEDS: FAMOTIDINE 20 MG TABLET. PO SCH (12:40)
[2021-01-25] MEDS: CARBIDOPA/LEVODOPA 25/100MG TABLET PO SCH ×3 (12:40→21:43)
[2021-01-25] MEDS: rOPINIRole 1 MG TABLET. PO SCH ×2 (12:40→21:42)
[2021-01-25] MEDS: ENOXAPARIN 30 MG/0.3 ML SYRINGE. SQ SCH (12:41)
[2021-01-25] MEDS ORDERED: CARBIDOPA/LEVODOPA 25/100MG TABLET PO SCH (14:00)
[2021-01-25 15:01] VITALS: BP 137/61
[2021-01-25 19:35] VITALS: BP 94/55
[2021-01-25] MEDS: SIMVASTATIN 40 MG TABLET. PO SCH (21:42)
[2021-01-25 23:20] VITALS: BP 102/51
[2021-01-26] VITALS (7 sets, daily range): BP systolic 72–143; BP diastolic 42–64
[2021-01-26 05:59] LABS: CALCIUM 8.1 mg/dL (8.5-10.1); CREATININE 0.7 mg/dL (0.6-1.0); GFR 80.1; MAGNESIUM 1.9 mg/dL (1.8-2.4); PHOSPHORUS 3.3 mg/dL (2.6-4.7); POTASSIUM 4.2 mmol/L (3.5-5.1)
[2021-01-26 06:11] LABS: BASO # 0.1 x10^3/uL (0.0-0.2); BASO % 2 % (0-3); EOS # 0.1 x10^3/uL (0.0-0.7); EOS % 3 % (0-3); HEMATOCRIT 29.8 % (36.0-47.0); HEMOGLOBIN 9.9 g/dL (12.0-15.5); LYMPH # 0.9 x10^3/uL (1.0-4.8); LYMPH % 30 % (24-48); MEAN CORPUSCULAR HEMOGLOBIN 31 pg (25-35); MEAN CORPUSCULAR HGB CONC 33 g/dL (31-37); MEAN CORPUSCULAR VOLUME 92 fL (79-100); MONO # 0.4 x10^3/uL (0.0-1.1); MONO % 12 % (0-9); NEUT # 1.7 x10^3/uL (1.8-7.7); NEUT % 54 % (31-73); PLATELET COUNT 151 x10^3/uL (140-400); RED BLOOD COUNT 3.23 x10^6/uL (3.50-5.40); RED CELL DISTRIBUTION WIDTH 14.4 % (11.5-14.5); WHITE BLOOD COUNT 3.1 x10^3/uL (4.0-11.0)
--- NOTE | 2021-01-26 06:51 | PDOC ---
[employer] PROGRESS NOTE Date of Service DOS: DATE: 01/26/21 TIME: 06:49 Chief Complaint Chief Complaint A/P: Acute metabolic encephalopathy Acute delirium or confusional state due to metabolic disturbance Hyponatremia Prerenal azotemia due to volume depletion Normocytic anemia due to chronic inflammation Failure to thrive, low BMI Severe protein malnutrition, low BMI 16.5 History of Parkinson's disease No obvious centrally acting medications currently. No obvious signs of infection on physical exam. No fevers or nuchal rigidity. CT head is negative for acute etiology. No history or signs of trauma Pending FeNa calculation for volume depletion Pending TSH, B12, folate levels Consider dementia prevention protocol Provide adequate lighting (open curtains during the day, turn the lights off at night) Provide frequent personal contact with family, friends, and staff or TV Encourage early and frequent mobilization Rehab screening ordered IV Haldol as needed for agitation, consider sitter as needed if non-redirectable agitation Avoid physical restraints, catheters or tubes, and benzodiazepines Nutrition consult if there is malnutrition or concern for vitamin deficiencies Continue IV fluids Lovenox for DVT prophylaxis ADA diet Full code Discussed with RN and SW Dispo inpatient management as above History of Present Illness History of Present Illness Ms Schmidt is an 80 yo F w/ PMHx congestive heart failure Parkinson's, dysphonia, memory loss presented to ED for altered mental status from a facility. Patient is confused at baseline and does not want to know why she is here today. The facility states she was more confused than normal today and was not performing tasks that she normally can perform. Patient states she is in no pain anywhere. Patient knows she is at the hospital but does not know why. Son is with her at bedside. Son states she was recently diagnosed with congestive heart failure within the last 45 days and has been seen at for this. Troponin x3 and CT head negative. Chest radiograph with cardiomegaly no acute abnormality otherwise. She has no chest pain. She notes she is eating well here. After discussion with her son and daughter they note that now that she has had memory problems related to Parkinson's she has not been eating well and not doing well in assisted living and they would like referral to hospice. They do have long-term plans but are not looking at a retirement facility at this time. Vitals/I&O Vitals/I&O: Vital Signs Date Time Temp Pulse Resp B/P (MAP) Pulse Ox O2 Delivery O2 Flow Rate FiO2 01/26/21 03:30 98.1 58 18 128/60 (82) 98 Room Air 98.1 l I & O 01/25/21 01/25/21 01/26/21 15:00 23:00 07:00 Intake Total 600 ml 50 ml Output Total 700 ml Balance 600 ml -700 ml 50 ml Physical Exam General: Alert, Cooperative Labs Labs: Laboratory Tests Test 01/25/21 07:00 01/26/21 05:07 Troponin I Quantitative 0.020 ng/mL (0.000-0.055) White Blood Count 3.1 x10^3/uL (4.0-11.0) Red Blood Count 3.23 x10^6/uL (3.50-5.40) Hemoglobin 9.9 g/dL (12.0-15.5) Hematocrit 29.8 % (36.0-47.0) Mean Corpuscular Volume 92 fL (79-100) Mean Corpuscular Hemoglobin 31 pg (25-35) Mean Corpuscular Hemoglobin Concent 33 g/dL (31-37) Red Cell Distribution Width 14.4 % (11.5-14.5) Platelet Count 151 x10^3/uL (140-400) Neutrophils (%) (Auto) 54 % (31-73) Lymphocytes (%) (Auto) 30 % (24-48) Monocytes (%) (Auto) 12 % (0-9) Eosinophils (%) (Auto) 3 % (0-3) Basophils (%) (Auto) 2 % (0-3) Neutrophils # (Auto) 1.7 x10^3/uL (1.8-7.7) Lymphocytes # (Auto) 0.9 x10^3/uL (1.0-4.8) Monocytes # (Auto) 0.4 x10^3/uL (0.0-1.1) Eosinophils # (Auto) 0.1 x10^3/uL (0.0-0.7) Basophils # (Auto) 0.1 x10^3/uL (0.0-0.2) Sodium Level 138 mmol/L (136-145) Potassium Level 4.2 mmol/L (3.5-5.1) Chloride Level 105 mmol/L (98-107) Carbon Dioxide Level 26 mmol/L (21-32) Anion Gap 7 (6-14) Blood Urea Nitrogen 12 mg/dL (7-20) Creatinine 0.7 mg/dL (0.6-1.0) Estimated GFR (Cockcroft-Gault) 80.1 Glucose Level 78 mg/dL (70-99) Calcium Level 8.1 mg/dL (8.5-10.1) Phosphorus Level 3.3 mg/dL (2.6-4.7) Magnesium Level 1.9 mg/dL (1.8-2.4) Assessment and Plan Assessmemt and Plan Problems Medical Problems: (1) Altered mental status Status: Acute (2) Parkinson disease Status: Acute Comment Review of Relevant I have reviewed the following items zulema (where applicable) has been applied. Medications: Current Medications Medications (Trade) Dose Ordered Sig/Tanika Route PRN Reason Start Time Stop Time Status Last Admin Dose Admin Enoxaparin Sodium (Lovenox 30mg Syringe) 30 mg DAILY SQ 01/25/21 09:00 01/25/21 12:41 Ropinirole HCl (Requip) 1 mg BID PO 01/25/21 11:00 01/25/21 21:42 Simvastatin (Zocor) 40 mg QHS PO 01/25/21 21:00 01/25/21 21:42 Famotidine (Pepcid) 20 mg DAILY PO 01/25/21 11:00 01/25/21 12:40 Carbidopa/Levodopa (Sinemet 25/100) 1 tab QID PO 01/25/21 13:00 01/25/21 21:43 Images: CT head - no acute abnormality Chest radiograph: The heart size is moderately enlarged, similar to prior. The great vessels appear unremarkable. There is no hilar or mediastinal mass. The lungs are clear. There is no pleural effusion or pneumothorax. There are no significant osseous abnormalities. IMPRESSION: Stable mild cardiomegaly. No superimposed active cardiopulmonary disease. Justifications for Admission Other Justification Altered mental status. NELLIE ALAS MD Jan 26, 2021 06:51
[2021-01-26] MEDS: FAMOTIDINE 20 MG TABLET. PO SCH (08:26)
[2021-01-26] MEDS: CARBIDOPA/LEVODOPA 25/100MG TABLET PO SCH ×3 (08:27→17:39)
[2021-01-26] MEDS: rOPINIRole 1 MG TABLET. PO SCH ×2 (08:27→20:26)
[2021-01-26] MEDS: ENOXAPARIN 30 MG/0.3 ML SYRINGE. SQ SCH (08:30)
[2021-01-26] MEDS ORDERED: FAMO-63 PO (09:27)
[2021-01-26] MEDS ORDERED: CLON0.1T PO (09:59)
[2021-01-26] MEDS ORDERED: CARB1TAB44 PO (09:59)
[2021-01-26] MEDS ORDERED: DENO60DI SQ (09:59)
[2021-01-26] MEDS ORDERED: SULF500T36 PO (09:59)
[2021-01-26] MEDS ORDERED: POTA20TA4 PO (09:59)
[2021-01-26] MEDS ORDERED: METO25TA4 PO (09:59)
[2021-01-26] MEDS ORDERED: FURO20TA3 PO (09:59)
[2021-01-26] MEDS ORDERED: TYLENOL PM PO (10:06)
[2021-01-26] MEDS ORDERED: ACETAMINOPHEN (10:06)
[2021-01-26] MEDS ORDERED: NAPR220C4 PO (10:12)
[2021-01-26] MEDS ORDERED: METO-239 PO (10:58)
--- NOTE | 2021-01-26 12:02 | NUR ---
SS following for discharge planning. SS reviewed pt chart and discussed with pt RN. Pt is from [facility], ; fax [phone]. Pt is currently on room air. SS met with pt and pt's son, Joseluis, in room and discussed discharge planning. Pt's son, daughter, and pt all requesting to return to [facility] with hospice services. Joseluis requested facility preference for hospice company. SS contacted Rosaura at [facility], ; fax [phone], was requested. SS phoned and faxed referrals to [facility]. Probable discharge back to assisted living with hospice tomorrow. SS will continue to follow for discharge planning.
[2021-01-26] MEDS ORDERED: CYANOCOBALAMIN (VITAMIN B-12) 1,000 MCG/ML VIAL. IM ONE (14:45)
[2021-01-26] MEDS: LISINOPRIL 20 MG TABLET PO SCH (15:26)
[2021-01-26] MEDS: FUROSEMIDE 20 MG TABLET PO SCH (15:26)
[2021-01-26] MEDS: METOPROLOL SUCC 24HR ER 25 MG TAB.ER.24H. PO SCH (15:27)
[2021-01-26] MEDS: CARBIDOPA/LEVODOPA CR 25/100MG TABLET.SA. PO SCH ×2 (15:32→20:26)
--- NOTE | 2021-01-26 15:49 | NUR ---
Have reviewed documentation by finance accounting internship and made changes as needed
[2021-01-26] MEDS: SIMVASTATIN 40 MG TABLET. PO SCH (20:26)
[2021-01-26] MEDS: sulfaSALAzine 500 MG TABLET PO SCH (20:26)
[2021-01-27 03:20] VITALS: BP 117/55
[2021-01-27 07:00] VITALS: BP 116/56
[2021-01-27] MEDS ORDERED: VITAMIN B12,B9,B6 COMPLEX 1 TABLET. PO SCH (09:00)
[2021-01-27] MEDS ORDERED: FLUTICASONE 50MCG/NASAL SPRAY 16GM BOTTLE. NS SCH (09:00)
[2021-01-27] MEDS: CARBIDOPA/LEVODOPA CR 25/100MG TABLET.SA. PO SCH (09:09)
[2021-01-27] MEDS: ENOXAPARIN 30 MG/0.3 ML SYRINGE. SQ SCH (09:09)
[2021-01-27] MEDS: rOPINIRole 1 MG TABLET. PO SCH (09:10)
[2021-01-27] MEDS: METOPROLOL SUCC 24HR ER 25 MG TAB.ER.24H. PO SCH (09:10)
[2021-01-27] MEDS: FAMOTIDINE 20 MG TABLET. PO SCH (09:10)
[2021-01-27] MEDS: sulfaSALAzine 500 MG TABLET PO SCH (09:11)
[2021-01-27] MEDS: FUROSEMIDE 20 MG TABLET PO SCH (09:11)
[2021-01-27] MEDS: LISINOPRIL 20 MG TABLET PO SCH (09:11)
--- NOTE | 2021-01-27 09:53 | SNU/HH DC ---
DISCHARGE ORDERS DISCHARGE INFORMATION: DISCHARGE DATE: Jan 27, 2021 FINAL DIAGNOSIS Problems Medical Problems: (1) Altered mental status Status: Acute (2) Parkinson disease Status: Acute CONDITION ON DISCHARGE: Stable CODE STATUS: Code Status: DNR/DNI HOSPICE: HOSPICE: Yes HOSPICE EVAL & TREAT: Yes POST DISCHARGE ORDERS: ACTIVITY ORDERS: Resume previous activity, Activity as tolerated WEIGHT BEARING STATUS: Full weight bearing DIET AFTER DISCHARGE: Regular WOUND/INCISION CARE: Ice to area for comfort, Keep wound/cast CDI, Keep wound elevated CHECKS AFTER DISCHARGE: CHECKS AFTER DISCHARGE: Check blood press - daily TREATMENT/EQUIPMENT ORDERS: ADAPTIVE EQUIPMENT NEEDED: None, Front wheeled walker DISCHARGE MEDICATIONS: Home Meds Active Scripts Tramadol Hcl (TRAMADOL HCL) 50 Mg Tablet, 50 MG PO PRN Q6HRS PRN for PAIN for 6 Days, #24 TAB Prov:NELLIE ALAS MD 12/22/19 Reported Medications Metoprolol Succinate (METOPROLOL SUCCINATE ( XL )) 25 Mg Tab.er.24h, 12.5 MG PO DAILY for FOR HYPERTENSION, #30 TAB 0 Refills 01/26/21 [Tylenol Pm] No Conflict Check, 1 TAB PO QHS 01/26/21 [Acetaminophen] No Conflict Check 01/26/21 Carbidopa/Levodopa (CARBIDOPA-LEVO ER 50-200 TAB) 1 Each Tablet.er, 1 EACH PO QID for PARKINSONS, TAB.SR 01/26/21 Clonidine Hcl (CLONIDINE HCL) 0.1 Mg Tablet, 0.1 MG PO EVERY 8 HOURS PRN for ELEVATED BP, SEE COMMENTS for 30 Days, #90 TAB 01/26/21 Sulfasalazine (SULFASALAZINE DR) 500 Mg Tablet.dr, 500 MG PO BID for PARKINSONS, TAB.SR 01/26/21 Denosumab (PROLIA) 60 Mg/1 Ml Disp.syrin, 60 MG SQ EVERY 6 MONTHS for OSTEOPOROSIS, DIS.SYR 01/26/21 Potassium Chloride (KLOR-CON M20) 20 Meq Tab.er.prt, 20 MEQ PO DAILY for after meals, TAB.SR 01/26/21 Furosemide (FUROSEMIDE) 20 Mg Tablet, 20 MG PO DAILY for , TAB 01/26/21 Famotidine (PEPCID) 20 Mg Tablet, 20 MG PO BID for , TAB 01/26/21 Carbidopa/Levodopa (CARBIDOPA-LEVODOPA 25-100 TAB) 1 Each Tablet, 1 TAB PO QID for parkinsons for 30 Days, #120 TAB 0 Refills 01/25/21 Lisinopril (LISINOPRIL) 40 Mg Tablet, 1 TAB PO DAILY for htn, #30 TAB 5 Refills 01/25/21 Nitroglycerin (NITROGLYCERIN SubLingual) 0.4 Mg Tab.subl, 0.4 MG SL PRN Q5MIN PRN for CHEST PAIN, ML 01/25/21 Triamcinolone Acetonide (NASACORT) 10.8 Ml [place], 2 SPRAY NS DAILY for allergies, ML 01/25/21 Acetaminophen (ACETAMINOPHEN) 500 Mg Tablet, 1 TAB PO PRN BID PRN for pain or fever for 15 Days, #60 TAB 0 Refills 12/21/19 Ranitidine Hcl (RANITIDINE HCL) 150 Mg Tablet, 1 TAB PO BID for acid reflux, #180 TAB 3 Refills 12/21/19 Simvastatin (SIMVASTATIN) 40 Mg Tablet, 1 TAB PO QHS for high cholesterol, #30 TAB 5 Refills 12/21/19 Ropinirole Hcl (ROPINIROLE HCL) 1 Mg Tablet, 1 MG PO TID for unknown, TAB 12/21/19 Donepezil Hcl (DONEPEZIL HCL) 10 Mg Tablet, 1 TAB PO DAILY for unknwon, #90 TAB 1 Refill 12/21/19 Discontinued Reported Medications Naproxen Sodium (ALEVE) 220 Mg Capsule, 220 MG PO EVERY 12 HOURS for PAIN, CAP 01/26/21 Metoprolol Tartrate (METOPROLOL TARTRATE) 25 Mg Tablet, 25 MG PO BID for FOR HYPERTENSION, #60 TAB 0 Refills 01/26/21 Peg 400/Hypromellose/Glycerin (EYE DROP TEARS) 15 Ml Drops, 15 ML OP Q4-6HRS PRN for DRY EYE, DROP 01/25/21 Carbidopa/Levodopa (CARBIDOPA-LEVODOPA 25-100 TAB) 1 Each Tablet, 1 TAB PO TID for memory loss for 30 Days, #90 TAB 0 Refills 12/21/19 Sulfasalazine (SULFASALAZINE DR) 500 Mg Tablet.dr, 500 MG PO BID for unknown, TAB.SR 12/21/19 Metoprolol Tartrate (METOPROLOL TARTRATE) 25 Mg Tablet, 1 TAB PO BID for htn, #180 TAB 1 Refill 12/21/19 Triamcinolone Acetonide (NASACORT) 10.8 Ml [place], 55 MCG NS DAILY for allergies for 30 Days, ML 0 Refills 12/21/19 Lisinopril (LISINOPRIL) 30 Mg Tablet, 1 TAB PO DAILY for HTN, #30 TAB 5 Refills 12/21/19 NELLIE ALAS MD Jan 27, 2021 09:53
--- NOTE | 2021-01-27 10:00 | PDOC ---
[employer] PROGRESS NOTE Date of Service DOS: DATE: 01/27/21 TIME: 09:57 Chief Complaint Chief Complaint A/P: Acute metabolic encephalopathy Acute delirium or confusional state due to metabolic disturbance Hyponatremia Prerenal azotemia due to volume depletion Normocytic anemia due to chronic inflammation Failure to thrive, low BMI Severe protein malnutrition, low BMI 16.5 History of Parkinson's disease No obvious centrally acting medications currently. No obvious signs of infection on physical exam. No fevers or nuchal rigidity. CT head is negative for acute etiology. No history or signs of trauma Pending FeNa calculation for volume depletion Pending TSH, B12, folate levels Consider dementia prevention protocol Provide adequate lighting (open curtains during the day, turn the lights off at night) Provide frequent personal contact with family, friends, and staff or TV Encourage early and frequent mobilization Rehab screening ordered IV Haldol as needed for agitation, consider sitter as needed if non-redirectable agitation Avoid physical restraints, catheters or tubes, and benzodiazepines Nutrition consult if there is malnutrition or concern for vitamin deficiencies Continue IV fluids Lovenox for DVT prophylaxis ADA diet Full code Discussed with RN and SW Dispo inpatient management as above History of Present Illness History of Present Illness Ms Schmidt is an 80 yo F w/ PMHx congestive heart failure Parkinson's, dysphonia, memory loss presented to ED for altered mental status from a facility. Patient is confused at baseline and does not want to know why she is here today. The facility states she was more confused than normal today and was not performing tasks that she normally can perform. Patient states she is in no pain anywhere. Patient knows she is at the hospital but does not know why. Son is with her at bedside. Son states she was recently diagnosed with congestive heart failure within the last 45 days and has been seen at for this. 01/26: Troponin x3 and CT head negative. Chest radiograph with cardiomegaly no acute abnormality otherwise. She has no chest pain. She notes she is eating well here. After discussion with her son and daughter they note that now that she has had memory problems related to Parkinson's she has not been eating well and not doing well in assisted living and they would like referral to hospice. They do have long-term plans but are not looking at a senior living facility at this time. Feeling stable today. Still with memory concerns. She and her son are amenable to hospice care given the progression of her Parkinson disease. Plan for hospice discharge to her assisted living. Vitals/I&O Vitals/I&O: Vital Signs Date Time Temp Pulse Resp B/P (MAP) Pulse Ox O2 Delivery O2 Flow Rate FiO2 01/27/21 09:11 62 116/56 01/27/21 07:00 98.1 18 98 Room Air 98.1 I & O 01/26/21 01/26/21 01/27/21 14:56 22:56 06:56 Intake Total 360 ml 480 ml 0 ml Output Total 250 ml 900 ml Balance 110 ml -420 ml 0 ml Physical Exam General: Alert, Cooperative Assessment and Plan Assessmemt and Plan Problems Medical Problems: (1) Altered mental status Status: Acute (2) Parkinson disease Status: Acute Comment Review of Relevant I have reviewed the following items zulema (where applicable) has been applied. Medications: Current Medications Medications (Trade) Dose Ordered Sig/Tanika Route PRN Reason Start Time Stop Time Status Last Admin Dose Admin Furosemide (Lasix) 20 mg DAILY PO 01/26/21 15:00 01/27/21 09:11 Lisinopril (Prinivil) 40 mg DAILY PO 01/26/21 15:00 01/27/21 09:11 Metoprolol Succinate (Toprol Xl) 12.5 mg DAILY PO 01/26/21 15:00 01/27/21 09:10 Carbidopa/Levodopa (Sinemet Cr) 2 tab.sa QID PO 01/26/21 16:00 01/27/21 09:09 Sulfasalazine (Azulfidine) 500 mg BID PO 01/26/21 21:00 01/27/21 09:11 Cyanocobalamin (Vitamin B-12) 1,000 mcg 1X ONCE IM 01/26/21 14:45 01/26/21 14:46 DC 01/26/21 15:27 Vitamin B Complex (Folbic Tablet) 1 tab DAILY PO 01/27/21 09:00 01/27/21 09:10 Justifications for Admission Other Justification Altered mental status. NELLIE ALAS MD Jan 27, 2021 10:00
--- NOTE | 2021-01-27 10:02 | PDOC3 ---
Discharge Summary Visit Information Date of Admission: Jan 24, 2021 Date of Discharge: Jan 27, 2021 Admitting Diagnosis: Acute encephalopathy Final Diagnosis Problems Medical Problems: (1) Altered mental status Status: Acute (2) Parkinson disease Status: Acute Brief Hospital Course Allergies Allergies Coded Allergies Type Severity Reaction Last Updated Verified shellfish derived Allergy Intermediate Hives 12/21/19 Yes Vital Signs Vital Signs Date Time Temp Pulse Resp B/P (MAP) Pulse Ox O2 Delivery O2 Flow Rate FiO2 01/27/21 09:11 62 116/56 01/27/21 07:00 98.1 18 98 Room Air 98.1 Lab Results Laboratory Tests Test 01/26/21 05:07 White Blood Count 3.1 x10^3/uL (4.0-11.0) Red Blood Count 3.23 x10^6/uL (3.50-5.40) Hemoglobin 9.9 g/dL (12.0-15.5) Hematocrit 29.8 % (36.0-47.0) Mean Corpuscular Volume 92 fL (79-100) Mean Corpuscular Hemoglobin 31 pg (25-35) Mean Corpuscular Hemoglobin Concent 33 g/dL (31-37) Red Cell Distribution Width 14.4 % (11.5-14.5) Platelet Count 151 x10^3/uL (140-400) Neutrophils (%) (Auto) 54 % (31-73) Lymphocytes (%) (Auto) 30 % (24-48) Monocytes (%) (Auto) 12 % (0-9) Eosinophils (%) (Auto) 3 % (0-3) Basophils (%) (Auto) 2 % (0-3) Neutrophils # (Auto) 1.7 x10^3/uL (1.8-7.7) Lymphocytes # (Auto) 0.9 x10^3/uL (1.0-4.8) Monocytes # (Auto) 0.4 x10^3/uL (0.0-1.1) Eosinophils # (Auto) 0.1 x10^3/uL (0.0-0.7) Basophils # (Auto) 0.1 x10^3/uL (0.0-0.2) Sodium Level 138 mmol/L (136-145) Potassium Level 4.2 mmol/L (3.5-5.1) Chloride Level 105 mmol/L (98-107) Carbon Dioxide Level 26 mmol/L (21-32) Anion Gap 7 (6-14) Blood Urea Nitrogen 12 mg/dL (7-20) Creatinine 0.7 mg/dL (0.6-1.0) Estimated GFR (Cockcroft-Gault) 80.1 Glucose Level 78 mg/dL (70-99) Calcium Level 8.1 mg/dL (8.5-10.1) Phosphorus Level 3.3 mg/dL (2.6-4.7) Magnesium Level 1.9 mg/dL (1.8-2.4) Iron Level 55 ug/dL (50-170) Total Iron Binding Capacity 250 ug/dL (250-450) Iron Saturation 22 % (15-34) Vitamin B12 Level 221 pg/mL (247-911) Brief Hospital Course Ms Schmidt is an 80 yo F w/ PMHx congestive heart failure Parkinson's, dysphonia, memory loss presented to ED for altered mental status from a facility. Patient is confused at baseline and does not want to know why she is here today. The facility states she was more confused than normal today and was not performing tasks that she normally can perform. Patient states she is in no pain anywhere. Patient knows she is at the hospital but does not know why. Son is with her at bedside. Son states she was recently diagnosed with congestive heart failure within the last 45 days and has been seen at for this. 01/26: Troponin x3 and CT head negative. Chest radiograph with cardiomegaly no acute abnormality otherwise. She has no chest pain. She notes she is eating well here. After discussion with her son and daughter they note that now that she has had memory problems related to Parkinson's she has not been eating well and not doing well in assisted living and they would like referral to hospice. They do have long-term plans but are not looking at a assisted facility at this time. Feeling stable today. Still with memory concerns. She and her son are amenable to hospice care given the progression of her Parkinson disease. Plan for hospice discharge to her assisted living. Problem list: Acute metabolic encephalopathy Acute delirium or confusional state due to metabolic disturbance Hyponatremia Prerenal azotemia due to volume depletion Normocytic anemia due to chronic inflammation Failure to thrive, low BMI Severe protein malnutrition, low BMI 16.5 History of Parkinson's disease No obvious centrally acting medications currently. No obvious signs of infection on physical exam. No fevers or nuchal rigidity. CT head is negative for acute etiology. No history or signs of trauma Pending FeNa calculation for volume depletion Pending TSH, B12, folate levels Consider dementia prevention protocol Provide adequate lighting (open curtains during the day, turn the lights off at night) Provide frequent personal contact with family, friends, and staff or TV Encourage early and frequent mobilization Rehab screening ordered Greater than 30 minutes spent on d/c to [facility] with hospice. Discharge Information Condition at Discharge: Stable Follow Up: Weeks (1) Disposition/Orders: D/C to Home w/ Hospice Scheduled Carbidopa/Levodopa (Carbidopa-Levodopa 25-100 Tab) 1 Each Tablet, 1 TAB PO QID for parkinsons for 30 Days, #120 Ref 0 (Reported) Entered as Reported by: KARLA MOTT on 01/25/211038 Last Action: Continued on 01/25/211042 by KARLA MOTT Carbidopa/Levodopa (Carbidopa-Levo Er 50-200 Tab) 1 Each Tablet.er, 1 EACH PO QID for PARKINSONS, (Reported) Entered as Reported by: SAMPSON SORIANO RN on 01/26/21958 Last Action: Converted on 01/26/211437 by NELLIE ALAS MD Denosumab (Prolia) 60 Mg/1 Ml Disp.syrin, 60 MG SQ EVERY 6 MONTHS for OSTEOPOROSIS, (Reported) Entered as Reported by: SAMPSON SORIANO RN on 01/26/21958 Last Action: New Order on 01/26/21958 by SAMPSON SORIANO RN Donepezil Hcl (Donepezil Hcl) 10 Mg Tablet, 1 TAB PO DAILY for unknwon, #90 Ref 1 (Reported) Entered as Reported by: WU HUNT on 12/21/19 184 Last Action: Reviewed on 01/25/211029 by KARLA MOTT Famotidine (Pepcid) 20 Mg Tablet, 20 MG PO BID for , (Reported) Entered as Reported by: Santhosh Khanna on 01/26/21926 Last Action: New Order on 01/26/21926 by Santhosh Khanna Furosemide (Furosemide) 20 Mg Tablet, 20 MG PO DAILY for , (Reported) Entered as Reported by: SAMPSON SORIANO RN on 01/26/21958 Last Action: Continued on 01/26/211437 by NELLIE ALAS MD Lisinopril (Lisinopril) 40 Mg Tablet, 1 TAB PO DAILY for htn, #30 Ref 5 (Reported) Entered as Reported by: KARLA MOTT on 01/25/21 1030 Last Action: Continued on 01/26/211437 by NELLIE ALAS MD Metoprolol Succinate (Metoprolol Succinate ( Xl )) 25 Mg Tab.er.24h, 12.5 MG PO DAILY for FOR HYPERTENSION, #30 Ref 0 (Reported) Entered as Reported by: Santhosh Khanna on 01/26/211057 Last Action: Continued on 01/26/211437 by NELLIE ALAS MD Potassium Chloride (Klor-Con M20) 20 Meq Tab.er.prt, 20 MEQ PO DAILY for after meals, (Reported) Entered as Reported by: SAMPSON SORIANO RN on 01/26/21958 Last Action: New Order on 01/26/21958 by SAMPSON SORIANO RN Ranitidine Hcl (Ranitidine Hcl) 150 Mg Tablet, 1 TAB PO BID for acid reflux, #180 Ref 3 (Reported) Entered as Reported by: WU HUNT on 12/21/191847 Last Action: Converted on 01/25/21941 by JOSE JAY MD Ropinirole Hcl (Ropinirole Hcl) 1 Mg Tablet, 1 MG PO TID for unknown, (Reported) Entered as Reported by: WU HUNT on 12/21/191847 Last Action: Edited on 01/26/21958 by SAMPSON SORIANO RN Simvastatin (Simvastatin) 40 Mg Tablet, 1 TAB PO QHS for high cholesterol, #30 Ref 5 (Reported) Entered as Reported by: WU HUNT on 12/21/191847 Last Action: Reviewed on 01/25/211029 by KARLA MOTT Sulfasalazine (Sulfasalazine Dr) 500 Mg Tablet.dr, 500 MG PO BID for PARKINSONS, (Reported) Entered as Reported by: SAMPSON SORIANO RN on 01/26/21958 Last Action: Converted on 01/26/211437 by NELLIE ALAS MD Triamcinolone Acetonide (Nasacort) 10.8 Ml [place], 2 SPRAY NS DAILY for allergies, (Reported) Entered as Reported by: KARLA MOTT on 01/25/211029 Last Action: Converted on 01/26/211437 by NELLIE ALAS MD [Tylenol Pm] , 1 TAB PO QHS, (Reported) Entered as Reported by: SAMPSON SORIANO RN on 01/26/211005 Last Taken: 1 on Unknown Date & Time Last Action: New Order on 01/26/211005 by SAMPSON SORIANO RN Scheduled PRN Acetaminophen (Acetaminophen) 500 Mg Tablet, 1 TAB PO PRN BID PRN for pain or fever for 15 Days, #60 Ref 0 (Reported) Entered as Reported by: WU HUNT on 12/21/19 1848 Last Action: Reviewed on 01/25/211029 by KARLA MOTT Clonidine Hcl (Clonidine Hcl) 0.1 Mg Tablet, 0.1 MG PO EVERY 8 HOURS PRN for ELEVATED BP, SEE COMMENTS for 30 Days, #90 (Reported) Entered as Reported by: SAMPSON SORIANO RN on 01/26/21958 Last Action: New Order on 01/26/21958 by SAMPSON SORIANO RN Nitroglycerin (NITROGLYCERIN SubLingual) 0.4 Mg Tab.subl, 0.4 MG SL PRN Q5MIN PRN for CHEST PAIN, (Reported) Entered as Reported by: KARLA MOTT on 01/25/211029 Last Action: New Order on 01/25/211029 by KARLA MOTT Tramadol Hcl (Tramadol Hcl) 50 Mg Tablet, 50 MG PO PRN Q6HRS PRN for PAIN for 6 Days, #24 Prescribed by: NELLIE ALAS MD on 12/22/19 1111 Last Action: Continued on 01/25/21941 by JOSE JAY MD Miscellaneous Medications [Acetaminophen] , (Reported) Entered as Reported by: SAMPSON SORIANO RN on 01/26/211005 Last Action: New Order on 01/26/211005 by SAMPSON SORIANO RN Discontinued Medications Carbidopa/Levodopa (Carbidopa-Levodopa 25-100 Tab) 1 Each Tablet, 1 TAB PO TID for memory loss for 30 Days, #90 Ref 0 (Reported) Entered as Reported by: WU HUNT on 12/21/191847 Last Action: Discontinued on 01/25/211029 by KARLA MOTT Lisinopril (Lisinopril) 30 Mg Tablet, 1 TAB PO DAILY for HTN, #30 Ref 5 (Reported) Entered as Reported by: WU HUNT on 12/21/191847 Last Action: Discontinued on 01/25/211029 by KARLA MOTT Metoprolol Tartrate (Metoprolol Tartrate) 25 Mg Tablet, 1 TAB PO BID for htn, #180 Ref 1 (Reported) Entered as Reported by: WU HUNT on 12/21/191847 Last Action: Discontinued on 01/25/211029 by KARLA MOTT Metoprolol Tartrate (Metoprolol Tartrate) 25 Mg Tablet, 25 MG PO BID for FOR HYPERTENSION, #60 Ref 0 (Reported) Discontinued Reason: Prescription changed Entered as Reported by: SAMPSON SORIANO RN on 01/26/21958 Last Action: New Order on 01/26/21958 by SAMPSON SORIANO RN Naproxen Sodium (Aleve) 220 Mg Capsule, 220 MG PO EVERY 12 HOURS for PAIN, (Reported) Entered as Reported by: SAMPSON SORIANO RN on 01/26/211011 Last Taken: 1 on Unknown Date & Time Last Action: New Order on 01/26/211011 by SAMPSON SORIANO RN Peg 400/Hypromellose/Glycerin (Eye Drop Tears) 15 Ml Drops, 15 ML OP Q4-6HRS PRN for DRY EYE, (Reported) Entered as Reported by: KARLA MOTT on 01/25/211029 Last Action: Discontinued on 01/25/211038 by KARLA MOTT Sulfasalazine (Sulfasalazine Dr) 500 Mg Tablet.dr, 500 MG PO BID for unknown, (Reported) Entered as Reported by: WU HUNT on 12/21/191847 Last Action: Discontinued on 01/25/211029 by KARLA MOTT Triamcinolone Acetonide (Nasacort) 10.8 Ml [place], 55 MCG NS DAILY for allergies for 30 Days, Ref 0 (Reported) Entered as Reported by: WU HUNT on 12/21/19 1848 Last Action: Discontinued on 01/25/21 1030 by KARLA MOTT Justicifation of Admission Dx: Justifications for Admission: Justification of Admission Dx: Yes NELLIE ALAS MD Jan 27, 2021 10:02
--- NOTE | 2021-01-27 10:19 | NUR ---
SS following up with discharge planning. SS reviewed pt chart and discussed with pt RN. Pt is currently on room air. Son meeting with [facility], ; fax [phone], this morning to sign consents. Discharge orders received for hospice. SS phoned and faxed discharge orders to [facility], ; fax [phone], and [facility]. Pt will discharge today and return to [facility] with hospice at 1330 via [facility] transport, [id number]. Pt, pt's RN, and pt's son, Joseluis, notified. Packet placed on chart.
[2021-01-27 11:00] VITALS: BP 81/47
--- NOTE | 2021-01-27 13:51 | NUR ---
Discharge Note: BRIANA CHANEY [address] Discharge instructions and discharge home medications reviewed with Rosaura at [facility] and questions have been answered and understanding verbalized. Discharge papers given transport. Discontinued iv line and catheter intact.
== END 2021-01-27 14:17 | disposition hospice, home (50) | DRG 640 ==
LOC: ER 19:22 → 2 SOUTH 23:05 → OBSVTOIN 01-26 14:38
PROVIDERS: ADMIT Internal Medicine; ATTEND Internal Medicine
DX: E87.1 Hypo-osmolality and hyponatremia (principal); G93.41 Metabolic encephalopathy; E43 Unspecified severe protein-calorie malnutrition; Z68.1 Body mass index [BMI] 19.9 or less, adult; G20 Parkinson's disease; D64.9 Anemia, unspecified; E86.9 Volume depletion, unspecified; I11.0 Hypertensive heart disease with heart failure; I50.9 Heart failure, unspecified; R62.7 Adult failure to thrive; R41.3 Other amnesia; F02.80 Dementia in other diseases classified elsewhere, unspecified severity, without behavioral disturbance, psychotic disturbance, mood disturbance, and anxiety; Z91.013 Allergy to seafood
CPT/HCPCS: 36415; 70450; 71045; 80048; 80053; 81001; 82570; 82607; 83540; 83550; 83735; 83880; 84100; 84300; 84484; 85025; 93005; 96360; 99285; G0378; G0379; J1650; J3420; J7030; 97116-GP; 97530-GP; 97535-GO